=== PATIENT | male | born 1970 | race Caucasian/White ===

== ENCOUNTER 2016-09-11 19:32 | Emergency (ER) | payer OTHER ==
[~2016-09-11] VITALS: Wt 104.3 kg
[~2016-09-11 19:32] MED LIST: BACTRIM DS 8001 TA1 PO; CEFTIN125 MG PO; CEFUROXIME AXE250 MG PO; CIPROFLOXACIN500 MG PO; COMBIVENT1 ARO IH; HYDROCODONE BIT1 T11 PO; KEFLEX500 MG PO; LEVAQUIN750 MG PO; LOMOTIL 0.025 M1 TA1 PO; MEDROL DOSEPAK4 MG PO; METFORMIN HCL500 MG PO; MOTRIN800 MG PO; NAPROSYN500 MG PO; NKHM; NOVAPLUS V0.09 MG/Ac IH; PREDNICOT20 MG PO; PREDNISONE5 MG/5 M1 PO; PRILOSEC20 MG PO; ROBITUSSIN AC 110 ML PO; SPIRIVA -- 3018 MCG INH; TRAMADOL HCL50 MG PO; Tessalon Perle100 MG PO; ULTRAM50 MG PO; VICODIN 5/500 505 MG PO; ZITHROMAX Z PA250 MG PO; ZITHROMAX250 MG PO; ZOFRAN4 MG PO
[2016-09-11] MEDS ORDERED: METFORMIN750 MG PO (19:42)
[2016-09-11] MEDS ORDERED: LISINOPRIL5 MG PO (19:43)
[2016-09-11] MEDS ORDERED: GLIPIZIDE10 M2 PO (19:43)
[2016-09-11 20:42] LABS: BASO # 0.1 10*3/uL (0.0-0.1); BASO % 1.1 % (0.0-1.0); EOS # 0.2 10*3/uL (0.0-0.4); EOS % 2.4 % (1.0-4.0); HEMATOCRIT 40.2 % (42.0-52.0); LYMPH # 3.3 10*3/uL (1.3-4.4); LYMPH % 40.6 % (27.0-41.0); MEAN CORPUSCULAR HGB 29.6 pg (27.0-31.0); MEAN CORPUSCULAR HGB CONC 34.8 g/dl (33.0-37.0); MEAN PLATELET VOLUME 9.5 fl (9.6-12.3); MONO # 0.6 10*3/uL (0.1-1.0); MONO % 7.2 % (3.0-9.0); NEUT # 3.9 10*3/uL (2.3-7.9); NEUT % 48.5 % (47.0-73.0); PLATELET COUNT AUTOMATED 251 10*3/uL (130-400); RED BLOOD COUNT 4.73 10*6/uL (4.50-5.90); RED CELL DISTRI WIDTH 12.4 % (0-14.5)
[2016-09-11 20:43] LABS: BILIRUBIN NEGATIVE (NEGATIVE); BLOOD NEGATIVE (NEGATIVE); CLARITY SL CLOUDY (CLEAR); COLOR YELLOW (YELLOW); GLUCOSE 3+ (NEGATIVE); KETONE NEGATIVE (NEGATIVE); LEUKO ESTERASE NEGATIVE (NEGATIVE); NITRITE NEGATIVE (NEGATIVE); PH 5.5 (5.0-9.0); PROTEIN NEGATIVE (NEGATIVE); UROBILINOGEN 0.2 E.U./dl (0.2-1.0)
[2016-09-11 20:51] LABS: BACTERIA TRACE; RBC 0-2 rbc/hpf (0-2); URINE REFLEX COMMENT NO (NO); WBC 0-2 wbc/hpf (0-5)
[2016-09-11 21:06] LABS: ALBUMIN 3.7 gm/dl (3.1-4.5); ALKALINE PHOSPHATASE 129 U/L (45-117); BILIRUBIN, TOTAL 0.3 mg/dl (0.2-1.0); BUN 14 mg/dl (7-24); C-REACTIVE PROTEIN 0.42 MG/DL (0-0.3); CARBON DIOXIDE 28 mmol/L (21-32); CHLORIDE 101 mmol/L (98-107); EST GLOM FILT AFRICAN AMERICAN > 60 ml/min; GLUCOSE 406 mg/dL (65-99); POTASSIUM 4.4 mmol/L (3.5-5.1); SGOT/AST 20 IU/L (3-35); SGPT/ALT 41 U/L (12-78); SODIUM 138 mmol/L (136-145)
[2016-09-11 21:07] LABS: TROPONIN I < 0.015 ng/ml (<0.045)
[2016-09-11] MEDS ORDERED: PRILOSEC20 M1 PO (22:52)
[2016-09-11] MEDS ORDERED: NEURONTIN100 MG PO (23:07)
== END 2016-09-11 23:34 | disposition home or self-care (01) ==
LOC: ED 19:32
PROVIDERS: Emergency Medicine Emergency Medical Services
DX: K21.9 Gastro-esophageal reflux disease without esophagitis (principal); E11.65 Type 2 diabetes mellitus with hyperglycemia; Z79.899 Other long term (current) drug therapy

== ENCOUNTER 2016-11-20 12:35 | Emergency (ER) | payer SELFPAY ==
[~2016-11-20] VITALS: Wt 104.3 kg
[~2016-11-20 12:35] MED LIST changes: +GLIPIZIDE10 M2 PO; +LISINOPRIL5 MG PO; +METFORMIN750 MG PO; +NEURONTIN100 MG PO; +PRILOSEC20 M1 PO
[2016-11-20] MEDS ORDERED: METFORMIN HYDR750 MG PO (12:41)
[2016-11-20] MEDS ORDERED: GLIPIZIDE5 MG PO (12:41)
[2016-11-20 13:00] LABS: BASO # 0.1 10*3/uL (0.0-0.1); BASO % 0.8 % (0.0-1.0); EOS # 0.2 10*3/uL (0.0-0.4); EOS % 2.3 % (1.0-4.0); HEMATOCRIT 46.9 % (42.0-52.0); HEMOGLOBIN 16.4 g/dl (14.0-18.0); LYMPH # 2.6 10*3/uL (1.3-4.4); LYMPH % 28.2 % (27.0-41.0); MEAN CELL VOLUME 85.6 fl (80.0-94.0); MEAN CORPUSCULAR HGB 29.9 pg (27.0-31.0); MEAN PLATELET VOLUME 9.8 fl (9.6-12.3); MONO # 0.7 10*3/uL (0.1-1.0); MONO % 7.2 % (3.0-9.0); NEUT # 5.6 10*3/uL (2.3-7.9); NEUT % 61.2 % (47.0-73.0); PLATELET COUNT AUTOMATED 270 10*3/uL (130-400); RED BLOOD COUNT 5.48 10*6/uL (4.50-5.90); WHITE BLOOD COUNT 9.2 10*3/uL (4.8-10.8)
[2016-11-20 13:15] LABS: ALBUMIN 3.8 gm/dl (3.1-4.5); ALKALINE PHOSPHATASE 149 U/L (45-117); BILIRUBIN, TOTAL 0.6 mg/dl (0.2-1.0); BUN 16 mg/dl (7-24); CARBON DIOXIDE 31 mmol/L (21-32); CHLORIDE 100 mmol/L (98-107); EST GLOM FILT AFRICAN AMERICAN > 60 ml/min; GLUCOSE 337 mg/dL (65-99); POTASSIUM 4.3 mmol/L (3.5-5.1); SGOT/AST 23 IU/L (3-35); SGPT/ALT 40 U/L (12-78); SODIUM 139 mmol/L (136-145); TOTAL PROTEIN 7.4 gm/dL (6.4-8.2)
[2016-11-20] MEDS ORDERED: LEVAQUIN750 M1 PO (15:02)
[2016-11-20] MEDS ORDERED: PREDNISONE50 MG PO (15:02)
== END 2016-11-20 14:58 | disposition home or self-care (01) ==
LOC: ED 12:35
PROVIDERS: Registered Nurse
DX: J20.9 Acute bronchitis, unspecified (principal); E11.65 Type 2 diabetes mellitus with hyperglycemia; Z79.899 Other long term (current) drug therapy

== ENCOUNTER 2017-01-26 13:52 | Emergency (ER) | payer MEDICAID ==
[~2017-01-26] VITALS: Wt 102.1 kg
[~2017-01-26 13:52] MED LIST changes: +GLIPIZIDE5 MG PO; +LEVAQUIN750 M1 PO; +METFORMIN HYDR750 MG PO; +PREDNISONE50 MG PO
[2017-01-26 14:18] LABS: BILIRUBIN NEGATIVE (NEGATIVE); BLOOD NEGATIVE (NEGATIVE); CLARITY CLEAR (CLEAR); COLOR YELLOW (YELLOW); GLUCOSE NEGATIVE (NEGATIVE); KETONE NEGATIVE (NEGATIVE); LEUKO ESTERASE NEGATIVE (NEGATIVE); NITRITE NEGATIVE (NEGATIVE); PROTEIN TRACE (NEGATIVE); UROBILINOGEN 0.2 E.U./dl (0.2-1.0)
[2017-01-26 14:32] LABS: BASO # 0.1 10*3/uL (0.0-0.1); BASO % 1.2 % (0.0-1.0); EOS # 0.2 10*3/uL (0.0-0.4); EOS % 2.5 % (1.0-4.0); HEMATOCRIT 46.3 % (42.0-52.0); HEMOGLOBIN 16.3 g/dl (14.0-18.0); LYMPH # 2.9 10*3/uL (1.3-4.4); LYMPH % 37.9 % (27.0-41.0); MEAN CELL VOLUME 85.9 fl (80.0-94.0); MEAN CORPUSCULAR HGB 30.2 pg (27.0-31.0); MEAN CORPUSCULAR HGB CONC 35.2 g/dl (33.0-37.0); MEAN PLATELET VOLUME 9.1 fl (9.6-12.3); MONO # 0.7 10*3/uL (0.1-1.0); MONO % 9.3 % (3.0-9.0); NEUT # 3.7 10*3/uL (2.3-7.9); PLATELET COUNT AUTOMATED 242 10*3/uL (130-400); RED BLOOD COUNT 5.39 10*6/uL (4.50-5.90); RED CELL DISTRI WIDTH 12.3 % (0-14.5); WHITE BLOOD COUNT 7.5 10*3/uL (4.8-10.8)
[2017-01-26 14:45] LABS: BACTERIA TRACE; MUCOUS TRACE; URINE REFLEX COMMENT NO (NO)
[2017-01-26 14:47] LABS: ALBUMIN 3.9 gm/dl (3.1-4.5); ALKALINE PHOSPHATASE 111 U/L (45-117); BILIRUBIN, TOTAL 0.4 mg/dl (0.2-1.0); BUN 11 mg/dl (7-24); CARBON DIOXIDE 27 mmol/L (21-32); CHLORIDE 102 mmol/L (98-107); EST GLOM FILT AFRICAN AMERICAN > 60 ml/min; GLUCOSE 182 mg/dL (65-99); POTASSIUM 4.1 mmol/L (3.5-5.1); SGOT/AST 30 IU/L (3-35); SGPT/ALT 40 U/L (12-78); SODIUM 137 mmol/L (136-145); TOTAL PROTEIN 7.9 gm/dL (6.4-8.2)
[2017-01-27] MEDS ORDERED: CYCLOBENZAPRINE5 M3 PO (13:36)
[2017-01-27] MEDS ORDERED: MEDROL DOSEPAK4 MG PO (13:36)
== END 2017-01-26 16:05 | disposition home or self-care (01) ==
LOC: ED 13:52
PROVIDERS: Physician Assistant
DX: B34.9 Viral infection, unspecified (principal); M54.2 Cervicalgia; R52 Pain, unspecified; Z79.899 Other long term (current) drug therapy

== ENCOUNTER 2017-01-27 11:07 | Emergency (ER) | payer MEDICAID ==
[~2017-01-27] VITALS: Ht 190.5 cm; Wt 102.1 kg
[2017-01-27 12:12] LABS: BILIRUBIN NEGATIVE (NEGATIVE); BLOOD NEGATIVE (NEGATIVE); CLARITY CLEAR (CLEAR); COLOR YELLOW (YELLOW); GLUCOSE NEGATIVE (NEGATIVE); KETONE NEGATIVE (NEGATIVE); LEUKO ESTERASE NEGATIVE (NEGATIVE); NITRITE NEGATIVE (NEGATIVE); PROTEIN TRACE (NEGATIVE)
[2017-01-27 12:22] LABS: EPITHELIAL CELLS 0-2; MUCOUS 1+; URINE REFLEX COMMENT NO (NO); WBC 0-2 wbc/hpf (0-5)
[2017-01-27] MEDS ORDERED: CYCLOBENZAPRINE5 M3 PO (13:36)
[2017-01-27] MEDS ORDERED: MEDROL DOSEPAK4 MG PO (13:36)
== END 2017-01-27 14:51 | disposition home or self-care (01) ==
LOC: ED 11:07
PROVIDERS: Nurse Practitioner Family
DX: M54.16 Radiculopathy, lumbar region (principal); Z79.899 Other long term (current) drug therapy; E11.9 Type 2 diabetes mellitus without complications

== ENCOUNTER → 2017-02-06 | Outpatient (CLI) | payer MEDICAID ==
[~2017-02-06] MED LIST changes: +CYCLOBENZAPRINE5 M3 PO
[2017-02-06 11:13] LABS: ALBUMIN 3.8 gm/dl (3.1-4.5); ALKALINE PHOSPHATASE 134 U/L (45-117); BILIRUBIN, TOTAL 0.5 mg/dl (0.2-1.0); BUN 17 mg/dl (7-24); CARBON DIOXIDE 30 mmol/L (21-32); CHLORIDE 100 mmol/L (98-107); EST GLOM FILT AFRICAN AMERICAN > 60 ml/min; GLUCOSE 269 mg/dL (65-99); POTASSIUM 4.4 mmol/L (3.5-5.1); SGOT/AST 13 IU/L (3-35); SGPT/ALT 36 U/L (12-78); SODIUM 139 mmol/L (136-145); TOTAL PROTEIN 7.7 gm/dL (6.4-8.2)
== END | disposition home or self-care (01) ==
LOC: LAB 10:30 → US 10:30
PROVIDERS: Nurse Practitioner Family
DX: K83.9 Disease of biliary tract, unspecified (principal)

== ENCOUNTER 2017-04-22 14:45 | Emergency (ER) | payer OTHER ==
[~2017-04-22] VITALS: Ht 190.5 cm; Wt 104.3 kg
[2017-04-22] MEDS ORDERED: BROMFED DM COU118 M2 PO (16:55)
[2017-04-22] MEDS ORDERED: VENTOLIN 02.5 MG/3 M INH (16:55)
[2017-04-22] MEDS ORDERED: AUGMENTIN 875875 MG PO (16:55)
[2017-04-22] MEDS ORDERED: PROAIR HFA8.5 GM INH (16:55)
== END 2017-04-22 16:51 | disposition home or self-care (01) ==
LOC: ED 14:45
DX: J40 Bronchitis, not specified as acute or chronic (principal); Z79.84 Long term (current) use of oral hypoglycemic drugs; Z79.899 Other long term (current) drug therapy

== ENCOUNTER 2017-05-04 19:09 | Inpatient (IN) | payer OTHER ==
[~2017-05-04] VITALS: Ht 190.5 cm; Wt 106.7 kg
[~2017-05-04 19:09] MED LIST changes: +AUGMENTIN 875875 MG PO; +BROMFED DM COU118 M2 PO; +PROAIR HFA8.5 GM INH; +VENTOLIN 02.5 MG/3 M INH
[2017-05-04 19:16] VITALS: BP 152/75
--- NOTE | 2017-05-04 21:13 | NUR ---
pt remains w/o acute distress noted awaiting all reports for additional plan of care.
[2017-05-04 21:42] LABS: BASO # 0.1 10*3/uL (0.0-0.1); BASO % 0.7 % (0.0-1.0); EOS # 0.1 10*3/uL (0.0-0.4); EOS % 0.8 % (1.0-4.0); HEMATOCRIT 41.2 % (42.0-52.0); HEMOGLOBIN 14.9 g/dl (14.0-18.0); LYMPH % 22.5 % (27.0-41.0); MEAN CELL VOLUME 86.4 fl (80.0-94.0); MEAN CORPUSCULAR HGB 31.2 pg (27.0-31.0); MEAN CORPUSCULAR HGB CONC 36.2 g/dl (33.0-37.0); MEAN PLATELET VOLUME 9.6 fl (9.6-12.3); MONO # 0.4 10*3/uL (0.1-1.0); MONO % 4.8 % (3.0-9.0); NEUT # 6.3 10*3/uL (2.3-7.9); NEUT % 70.9 % (47.0-73.0); PLATELET COUNT AUTOMATED 267 10*3/uL (130-400); RED BLOOD COUNT 4.77 10*6/uL (4.50-5.90); RED CELL DISTRI WIDTH 12.2 % (0-14.5); WHITE BLOOD COUNT 8.8 10*3/uL (4.8-10.8)
[2017-05-04 21:51] VITALS: BP 126/76
[2017-05-04 21:58] LABS: ALBUMIN 3.5 gm/dl (3.1-4.5); BUN 13 mg/dl (7-24); CHLORIDE 99 mmol/L (98-107); CREATININE 1.09 mg/dL (0.70-1.30); POTASSIUM 3.8 mmol/L (3.5-5.1); SGOT/AST 25 IU/L (3-35); SGPT/ALT 44 U/L (12-78); SODIUM 133 mmol/L (136-145); TOTAL PROTEIN 7.1 gm/dL (6.4-8.2)
[2017-05-04 22:00] LABS: ALKALINE PHOSPHATASE 116 U/L (45-117)
[2017-05-04 22:08] VITALS: BP 142/78
--- NOTE | 2017-05-04 22:08 | NUR ---
A 46 MALE, admitted to , under the services of DAVID Michele DO with a diagnosis of FAILURE OF OUTPT TX/PNEUMONIA. Chief complaint is BRONCHITIS. Patient arrived via ambulatory from ER. Monitor applied. Initial assessment completed. Vital signs taken and recorded. DAVID MICHELE DO notified of admission to the unit. Orders received. See assessment for past medical history, medications and allergies. Patient and/or family oriented to unit. [facility] visitation policy reviewed. Clothing/patient valuable form completed. MED REC REVIEWED AND UPDATED. GIANCARLO CHASE
--- NOTE | 2017-05-04 22:20 | NUR ---
zithromax iv to floor with pt.
--- NOTE | 2017-05-04 23:22 | NUR ---
DR. LOBO NOTIFIED OF PT MED REC UPDATED AND VERIFIED.
[2017-05-05] VITALS: BP 140/74
--- NOTE | 2017-05-05 00:19 | NUR ---
DR. LOBO NOTIFIED OF CRITICAL LACTIC ACID OF 4.1. N.O. RCVD FOR NS BOLUS OF 30ML PER KG THEN MAINTENANCE NS AT 100CC/HR.
--- NOTE | 2017-05-05 02:10 | NUR ---
CRITICAL LACTIC ACID OF 3.8 REPORTED VIA TELEPHONE TO DR. LOBO. N.O. [facility] [place] TO REDRAW LACTIC ACID AT 0530.
--- NOTE | 2017-05-05 05:56 | NUR ---
DR. LOBO NOTIFIED OF CRITICAL LACTIC ACID OF 2.8. NO N.O. RCVD AT THIS TIME.
[2017-05-05 06:19] LABS: BASO % 0.3 % (0.0-1.0); HEMATOCRIT 40.7 % (42.0-52.0); HEMOGLOBIN 14.3 g/dl (14.0-18.0); LYMPH # 1.4 10*3/uL (1.3-4.4); LYMPH % 18.9 % (27.0-41.0); MEAN CELL VOLUME 86.8 fl (80.0-94.0); MEAN CORPUSCULAR HGB 30.5 pg (27.0-31.0); MEAN CORPUSCULAR HGB CONC 35.1 g/dl (33.0-37.0); MEAN PLATELET VOLUME 9.8 fl (9.6-12.3); MONO # 0.1 10*3/uL (0.1-1.0); MONO % 0.7 % (3.0-9.0); NEUT # 5.8 10*3/uL (2.3-7.9); NEUT % 79.7 % (47.0-73.0); PLATELET COUNT AUTOMATED 267 10*3/uL (130-400); RED BLOOD COUNT 4.69 10*6/uL (4.50-5.90); RED CELL DISTRI WIDTH 12.1 % (0-14.5); WHITE BLOOD COUNT 7.3 10*3/uL (4.8-10.8)
[2017-05-05 06:24] LABS: ACT PARTIAL THROMBO TIME 23.8 SECONDS (20.8-31.5); BUN 15 mg/dl (7-24); CHLORIDE 102 mmol/L (98-107); CHOLESTEROL 150 mg/dL (<200); CREATININE 1.07 mg/dL (0.70-1.30); HDL CHOLESTEROL 31 mg/dl (40-60); LDL CHOLESTEROL 101 mg/dL (9-159); POTASSIUM 4.4 mmol/L (3.5-5.1); SODIUM 135 mmol/L (136-145); TRIGLYCERIDES 91 mg/dl (<150); VLDL CHOLESTEROL 18 mg/dL (6-40)
[2017-05-05 06:32] LABS: THYROID STIM HORMONE (HS) 0.585 uIU/ml (0.358-4.75)
[2017-05-05 07:28] LABS: VITAMIN D, 25-HYDROXY 31.2 ng/mL (30-100)
[2017-05-05 08:00] VITALS: BP 136/72
--- NOTE | 2017-05-05 08:16 | NUR ---
NOTIFIED OF PATIENTS LACTIC ACID LEVEL.
--- NOTE | 2017-05-05 08:30 | NUR ---
Motion Picture Projectionist in to talk to patient. Patient states lives at HOME with HIS SISTER. There are 15 steps in the home. Physician: JEAN-PAUL KONG Pharmacy: [facility] services: NONE Patient's level of ADLs: INDEPENDENT Patient has working utilities: YES DME: NONE Follow-up physician's appointment after d/c: WILL BE MADE PRIOR TO DC Does patient want to access PORTAL?: Discharge plan HOME. AVI ESCOBAR
--- NOTE | 2017-05-05 10:06 | NUR ---
TYLENOL GIVEN PER PATIENT REQUEST FOR C/O CHEST PAIN DUE TO COUGHING. WILL MONITOR
--- NOTE | 2017-05-05 10:11 | NUR ---
PER PATIENT REQUEST A TYLENOL WAS GIVEN FOR C/O CHEST AND BACK PAIN DUE TO COUGHING WAS GIVEN FOR PAIN RATED 8/10. WILL MONITOR.
--- NOTE | 2017-05-05 10:23 | NUR ---
DR. LOBO NOTIFIED OF PATIENTS LACTIC ACID LEVEL AND OF MED REC VERIFIED THROUGH PATIENTS HOME PHARMACY.
--- NOTE | 2017-05-05 11:00 | NUR ---
TYLENOL EFFECCTIVE. PATIENT SATISFIED CHEST PAIN HAS RESOLVED.
[2017-05-05 12:00] VITALS: BP 132/76
[2017-05-05 16:00] VITALS: BP 116/63
[2017-05-05 20:00] VITALS: BP 112/46
--- NOTE | 2017-05-05 20:30 | NUR ---
PT STATES THAT PRN TYLENOL WAS EFFECTIVE FOR CHEST DISCOMFORT.
[2017-05-06] VITALS (7 sets, daily range): BP systolic 118–137; BP diastolic 63–88
--- NOTE | 2017-05-06 00:27 | NUR ---
DR. PARIKH OK'D FOR PT TO REMOVE HEART MONITOR TO SHOWER. PT ADVISED. PT WILL SHOWER IN AM.
--- NOTE | 2017-05-06 02:38 | NUR ---
24 HR chart check completed.
[2017-05-06 06:43] LABS: BASO % 0.1 % (0.0-1.0); HEMATOCRIT 38.9 % (42.0-52.0); HEMOGLOBIN 13.8 g/dl (14.0-18.0); LYMPH # 1.7 10*3/uL (1.3-4.4); LYMPH % 11.1 % (27.0-41.0); MEAN CELL VOLUME 87.2 fl (80.0-94.0); MEAN CORPUSCULAR HGB 30.9 pg (27.0-31.0); MEAN CORPUSCULAR HGB CONC 35.5 g/dl (33.0-37.0); MEAN PLATELET VOLUME 9.8 fl (9.6-12.3); MONO # 0.6 10*3/uL (0.1-1.0); NEUT # 13.1 10*3/uL (2.3-7.9); NEUT % 84.1 % (47.0-73.0); PLATELET COUNT AUTOMATED 286 10*3/uL (130-400); RED BLOOD COUNT 4.46 10*6/uL (4.50-5.90); RED CELL DISTRI WIDTH 12.1 % (0-14.5); WHITE BLOOD COUNT 15.6 10*3/uL (4.8-10.8)
[2017-05-06 07:07] LABS: BUN 14 mg/dl (7-24); CHLORIDE 102 mmol/L (98-107); CREATININE 0.87 mg/dL (0.70-1.30); POTASSIUM 4.1 mmol/L (3.5-5.1); SODIUM 136 mmol/L (136-145)
--- NOTE | 2017-05-06 07:45 | NUR ---
ASSESSMENT COMPLETED AND NOTED. SITTING UP IN BED EATING BREAKFAST ON ROOM AIR. NO COMPLAINTS OF SOB. LUNG SOUNDS CLEAR BILATERALLY. ELLIOT BUSTAMANTENJDMARGARITA
--- NOTE | 2017-05-06 08:23 | NUR ---
Shift chart check completed.
--- NOTE | 2017-05-06 09:29 | NUR ---
PT COMPLAINS OF HEADACHE, TYLENOL GIVEN. SEE MAR. WILL MONITOR FOR EFFECTIVENESS
--- NOTE | 2017-05-06 10:21 | NUR ---
TYLENOL EFFECTIVE FOR PAIN. NO NEEDS AT THIS TIME
--- NOTE | 2017-05-06 10:27 | NUR ---
PATIENT RESTING IN BED. WAITING FOR FAIMLY TO BRING CLOTHES TO SHOWER ELLIOT COLE SPNJDRC
--- NOTE | 2017-05-06 10:44 | NUR ---
ASSESSMENT COMPLETE. PT STATES NO NEEDS AT THIS TIME. PT STATES SOME SOB WITH EXERTION. WHEEZING NOTED. IV IN LEFT HAND INTACT, IVF INFUSING NS AT 100. WILL CONTINUE TO MONITOR FOR NEEDS. PT HAS STUDENT NURSE WELL TODAY.
--- NOTE | 2017-05-06 11:56 | NUR ---
BLOOD SUGAR 334
--- NOTE | 2017-05-06 12:18 | NUR ---
PATIENT SHOWERED AND PERFORMED ORAL HYGEINE. HE IS SITTING UP IN BED EATING LUNCH ELLIOT PINAAngela
--- NOTE | 2017-05-06 20:34 | NUR ---
PT STARTED NEW IV. STARTED BY CHAMP.
--- NOTE | 2017-05-06 20:56 | NUR ---
tylelon given for pain. will coninue to monitor.
--- NOTE | 2017-05-06 22:00 | NUR ---
NEW IV STARTED. FIRST 3 STICKS UNSECCESSFUL. 3RD STICK INFILTRATED AND CAUSED PAIN. PT GIVEN ICE AND TYLENOL TO HELP SOOTH PAIN. WILL CONINUE TO MONITOR.
--- NOTE | 2017-05-06 22:00 | NUR ---
SPOKE TO RESPIROTORY ON PHONE ON [facility] ON THE EMAR. RESP SAID THEY WILL TAKE CARE OF IT. WILL CONINUE TO MONITOR
[2017-05-07] VITALS: BP 129/72
--- NOTE | 2017-05-07 01:45 | NUR ---
PT GIVEN NORCO FOR PAIN. WILL CONTINUE TO MONITOR
--- NOTE | 2017-05-07 02:11 | NUR ---
NORCO UNEFFECTIVE AT THIS TIME. PT STATES PAIN IN ARM IS STILL AT AROUND 9/10. WILL CONTINUE TO MONITOR
[2017-05-07 04:00] VITALS: BP 120/70
--- NOTE | 2017-05-07 04:22 | NUR ---
PT GIVEN TYLENOL FOR PAIN. WILL CONTINUE TO MONITOR.
[2017-05-07 07:44] VITALS: BP 138/74
--- NOTE | 2017-05-07 08:09 | NUR ---
PATIENT LEFT FLOOR FOR XRAY. HE IS SITTING UP IN BED EATING BREAKFAST. ELLIOT COLE SPNJDRC
--- NOTE | 2017-05-07 08:15 | NUR ---
ASSESSMENT COMPLETED AND NOTED. PATIENT SITTING UP IN BED EATING BREAKFAST.
--- NOTE | 2017-05-07 09:10 | NUR ---
NORCO GIVEN FOR C/O HEADACHE. WILL MONITOR.
--- NOTE | 2017-05-07 09:56 | NUR ---
PT IS RESTING IN BED. NO COMPLAINTS ELLIOT AGUILARJDMARGARITA
[2017-05-07] MEDS ORDERED: KEFLEX750 M1 PO (12:09)
[2017-05-07 12:12] VITALS: BP 132/73
[2017-05-07] MEDS ORDERED: CHERATUSSIN AC118 M1 PO (12:12)
--- NOTE | 2017-05-07 12:14 | NUR ---
PT SITTING UP IN BED EATING LUNCH. CALL LIGHT IN REACH ELLIOT COLE SPNJDRCAngela
[2017-05-07] MEDS ORDERED: ZITHROMAX500 MG PO (12:17)
[2017-05-07] MEDS ORDERED: PREDNISONE10 MG PO (12:21)
--- NOTE | 2017-05-07 12:45 | NUR ---
IV SITE D/C, SITE ASYMPTOMATIC, CATHETER INTACT, PT TOLERATED WELL, SHOWERING PRIOR TO DISCHARGE ELLIOT [facility]JDDE[facility]
--- NOTE | 2017-05-07 14:19 | NUR ---
CCDIS Discharge instructions reviewed with patient/family. Patient receptive and verbalizes understanding. Follow-up care arranged. Written instructions given to patient/family. JASON HAWKINS
== END 2017-05-07 14:19 | disposition home or self-care (01) | DRG 194 ==
LOC: ED 19:09 → EDHOLD 21:25 → 4E 21:25
PROVIDERS: Hospitalist; Internal Medicine; Nurse Practitioner Family; ADMIT Internal Medicine
DX: J18.9 Pneumonia, unspecified organism (principal); E87.2 Acidosis; E11.65 Type 2 diabetes mellitus with hyperglycemia; E87.1 Hypo-osmolality and hyponatremia; K21.9 Gastro-esophageal reflux disease without esophagitis; I10 Essential (primary) hypertension; T38.0X5A Adverse effect of glucocorticoids and synthetic analogues, initial encounter; Z79.84 Long term (current) use of oral hypoglycemic drugs; Z79.2 Long term (current) use of antibiotics; Z82.49 Family history of ischemic heart disease and other diseases of the circulatory system; Z79.899 Other long term (current) drug therapy; Z78.9 Other specified health status; Y92.89 Other specified places as the place of occurrence of the external cause; Z83.3 Family history of diabetes mellitus

== ENCOUNTER → 2017-05-22 | Outpatient (CLI) | payer OTHER ==
[~2017-05-22] MED LIST changes: +CHERATUSSIN AC118 M1 PO; +KEFLEX750 M1 PO; +PREDNISONE10 MG PO; +ZITHROMAX500 MG PO
== END | disposition home or self-care (01) ==
LOC: LAB 15:26
DX: J18.9 Pneumonia, unspecified organism (principal)

== ENCOUNTER 2017-05-27 14:25 | Inpatient (IN) | payer OTHER ==
[~2017-05-27] VITALS: Ht 190.5 cm; Wt 107.3 kg
--- NOTE | ~2017-05-27 | PR ---
[place], [place] PROGRESS NOTE NAME: FESTUS BROWN UNIT #: [id number] ROOM: 420 DOCTOR: BRANDAN RIVERS MD BIRTHDATE: [birth year] DOS: 05/29/2017 SUBJECTIVE: He has been noted comfortable. At this time, still noted significant cough. The patient has been planned for bronchoscopy done today. He is n.p.o. past midnight. He has been getting bronchodilators, corticosteroids, antibiotics and other treatments as previously ordered. OBJECTIVE: VITAL SIGNS: Showed normal temperature, respiratory rate 22, heart rate of 95, blood pressure 140/76. Pulse oxygen saturation of the patient recorded as normal on room air 96% saturation. HEENT: Chronic moderate obesity. NECK: Supple. CARDIOVASCULAR SYSTEM: S1, S2 audible. LUNGS: The patient was noted without any wheezing or crackles at the present time. Breaths are noted mildly decreased bilaterally. ABDOMEN: Soft, obese, nontender. EXTREMITIES: No edema. LABORATORY DATA: Blood glucose 279, normal BUN and creatinine. CBC this morning, WBC count 16.6, hemoglobin 13.4, hematocrit 38.6, platelet count 275,000, 81% segmented neutrophils. The blood culture from the 5th of this month showed no bacterial growths. IMPRESSION: 1. The patient with ongoing acute exacerbation of bronchial asthma with the coughing. 2. Suspected mucus impaction of major airways, persistent cough. The other symptoms have been resolving gradually. 3. The patient with type 2 diabetes mellitus and uncontrolled hyperglycemia, we used other corticosteroids. Partial improvement noted ____ from yesterday. PLAN OF MANAGEMENT: Continuation of current medical management, bronchodilators, oxygen supplementation and the antibiotics and other therapies. Proceed with the bronchoscopy. Any changes in the management the patient needs to be made, would be ordered after the bronchoscopy. [place], [place] PROGRESS NOTE NAME: FESTUS BROWN UNIT #: [id number] ROOM: 420 DOCTOR: BRANDAN RIVERS MD BIRTHDATE: [birth year] BRANDAN LOPEZ MD CM:PNTRANS [id number] BRANDAN GREEN MD 05/29/17 1701 interface
--- NOTE | ~2017-05-27 | CON ---
[place], [place] REPORT OF CONSULTATION [id number] UNIT #: [id number] ROOM: 420 DOCTOR: JOHN GREEN MD,BRANDAN BIRTHDATE: [birth year] DOS: 05/28/2017 The consultation was requested by the hospitalist services for the assessment of the current ongoing respiratory symptoms of bronchial asthma and others. HISTORY OF PRESENT ILLNESS: This is a 46-year-old male, who has described presumed history of past exposure to the chemical inhalation of hydrochloric acid for the patient in 2010 resulting in some lung injury. The patient stated that he has developed coughing, which has been present for about 2 months that has been noted nonproductive and gradually worsening. The cough has been noted with nighttime awakening as well. He has been reporting symptoms of intermittent wheezing with the chest tightness and dyspnea with exertion. He has taken some outpatient medication stating that the symptoms had now been resolving with that. He denies any symptoms of chest pain. The patient has been admitted in this hospital in 04/2017, for the patient for a couple of days from 05/04/2017, until 05/07/2017, and manage was described as a finding of pneumonia, bronchitis, and other illnesses. The patient stated since he has been discharged from the hospital, he has not had any improvement in symptoms. The symptoms actually remains persistent. The patient denies any symptoms of rather hemoptysis. He has been followed by a bow stapler for the bronchitis, pneumonia, and other respiratory issues. REVIEW OF SYSTEMS: CONSTITUTIONAL SYMPTOMS: Fatigue and tiredness noted with the patient without any symptoms of fever or chills. EYES: The patient denies any symptoms of dryness of the eyes, burning, discharge, or redness. EARS, NOSE, AND THROAT: Denies sore throat, hoarseness, otalgia, postnasal drainage. CARDIOVASCULAR: Denies anginal pain, edema or pain of the lower extremities. GASTROINTESTINAL: Dysphagia, nausea, vomiting, diarrhea, abdominal pain, hematemesis, melena, or hematochezia. GENITOURINARY: No dysuria, suprapubic pain, hematuria. MUSCULOSKELETAL: No acute joint pain, redness, or tenderness. SKIN: Denies lesions or rashes. MUSCULOSKELETAL: Denies any acute joint pain, redness, or tenderness. SKIN: Denies lesions or rashes. CENTRAL NERVOUS SYSTEM: Dizziness, headache, diplopia, syncopal episode, seizures. Remaining systems were reviewed with the patient, they were noted all negative. PAST MEDICAL HISTORY: 1. 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 2. History of essential hypertension. 3. Type 2 diabetes mellitus. 4. Moderate obesity. 5. History of chronic right bundle branch block. [place], [place] REPORT OF CONSULTATION NAME: FESTUS BROWN UNIT #: [id number] ROOM: [facility] [place] DO[facility] [birth year] PAST SURGICAL HISTORY: 1. Fiberoptic bronchoscopy in the past. 2. Laryngoscopy. 3. Tonsillectomy. SOCIAL HISTORY: The patient stating that he is , has 2 children. Denies any history of alcohol use or any illicit drug use. He was noted nonsmoker lifetime. FAMILY HISTORY: The patient was noted for coronary artery disease and essential hypertension. HOME MEDICATIONS: 1. Reported use of Ventolin HFA inhaler p.r.n. use. 2. Glipizide 5 mg t.i.d. 3. Metformin 750 mg daily. 4. Albuterol sulfate 2.5 mg nebulizer 2-3 times a day p.r.n. for respiratory symptoms. DRUG ALLERGIES: No known drug allergies. PHYSICAL EXAMINATION: GENERAL: This is a 46-year-old male, who has been currently sitting on the bed for the patient without any acute distress at the time of the assessment. Height was noted as 6 feet 3 inches, weight of 236 pounds, BMI 29.5. VITAL SIGNS: Normal temperature since admission for this patient in the last 24-hour respiratory rate between 18-20, heart rate of 187, blood pressure 131/74-140/71. The pulse oxygen saturation on room air 92% saturation to 97% range was noted. HEENT: Head was atraumatic. Eyes nonicterus. NECK: Supple. CARDIOVASCULAR: S1, S2 audible without any added sounds. LUNGS: Moderate decreased breath sounds, occasional wheezing, no crackles. ABDOMEN: Soft, nontender with mild obesity. EXTREMITIES: Without any edema, clubbing, cyanosis. CENTRAL NERVOUS SYSTEM: Cranial nerves on 2-12 intact. No focal deficit. MUSCULOSKELETAL: No deformities. SKIN: No lesions or rashes. LABORATORY DATA: Lactic acid on admission 2.4, follow up 1.4 on 05/27. The PT, PTT 05/27, were normal. CMP of the patient 05/27, on admission, glucose 215. Sodium 134. Remaining BMP was normal with normal BUN and creatinine. Troponin for the patient 3 sets on the 5th and the 6th were all noted normal. CBC on 05/27, for this patient was noted completely normal. CBC that was done on 05/28, WBC count 12.7, hemoglobin 13.5, hematocrit 38.1, platelet count was normal. CMP of the patient of this morning, glucose 384 with normal BUN and creatinine, sodium 134. Chest x-ray of the patient, review for the patient of 05/22/2017, for this patient that was done for this patient previously from the PACS images were noted essentially no acute infiltrate ____ 2-view was also noted as a normal study. [place], [place] REPORT OF CONSULTATION NAME: KEVINFESTUS UNIT #: [id number] ROOM: 420 DOCTOR: PETE RIVERS MDM BIRTHDATE: [birth year] IMPRESSION: 1. The patient who has been noted with current diagnosis presumed acute exacerbation of bronchial asthma with acute bronchitis suspect a mucus impaction in the airway with a nonproductive cough. History of exposure and inhalation of the hydrochloric acid fumes for this patient in 2011 was reported by the patient. 2. History of diabetes mellitus, which has been noted currently uncontrolled hyperglycemia because of use of the corticosteroids. 3. History of mild obesity as well. PLAN OF MANAGEMENT: The dose of Solu-Medrol will be decreased to a lower dose 40 mg b.i.d. for this patient that will help in improvement in the hyperglycemia as well. Therapeutic bronchoscopy was discussed with the patient to be done tomorrow morning with the explaining of risks and the benefits and the patient is agreeable for the procedure. The n.p.o. past midnight for the patient will be achieved from midnight tonight. Empirically continue antibiotic and the antibiotic to be discontinued based on the culture results for the patient accordingly. Continuation of bronchodilator management. The patient had previously reported symptomatic management of cough as well. Other supportive therapy, plan of management and care. Usual treatment, all other supportive plan of management. Thanks for allowing me to participate in the care of this patient. BRANDAN LOPEZ MD CM:CONSTR:REPORT OF CONSULTATION 1230 05/28/17 1455 interface
--- NOTE | ~2017-05-27 | EKG ---
[place], [place] ELECTROCARDIOGRAM REPORT NAME: FESTUS BROWN UNIT #: [id number] ROOM: 420 DOCTOR: JOHN GREEN MD,BRANDAN BIRTHDATE: [birth year] DOS: 05/29/2017 ELECTROCARDIOGRAM The electrocardiogram done on 05/27/2017 at 3:17 p.m. Sinus rhythm was noted with right bundle branch block. No other abnormalities noted. BRANDAN LOPEZ MD CM:EKGRPT:ELECTROCARDIOGRAM REPORT [id number] [id number] BRANDAN GREEN MD
--- NOTE | ~2017-05-27 | EKG ---
[place], [place] ELECTROCARDIOGRAM REPORT NAME: FESTUS BROWN UNIT #: [id number] ROOM: 420 DOCTOR: JOHN GREEN MD,BRANDAN BIRTHDATE: [birth year] DOS: 05/29/2017 ELECTROCARDIOGRAM The electrocardiogram shows evidence of sinus tachycardia with heart rate of 115 beats per minute. Right bundle-branch block was noted, which is a chronic finding. BRANDAN LOPEZ MD CM:EKGRPT:ELECTROCARDIOGRAM REPORT [id number] BRANDAN GREEN MD
--- NOTE | ~2017-05-27 | PR ---
[place], [place] PROGRESS NOTE NAME: FESTUS BROWN [facility] #: [id number] UNIT #: [id number] ROOM: 420 DOCTOR: JOHN GREEN MD,BRANDAN BIRTHDATE: [birth year] DOS: 05/30/2017 PULMONARY FOLLOWUP SUBJECTIVE: He has a bronchoscopy done yesterday with significant reduction and improvement in the symptoms of cough was noted and with symptoms of chest pain and symptoms of abdominal pain. He has been noted comfortably resting on his bed. OBJECTIVE: VITAL SIGNS: Normal temperature, respiratory rate 18, heart rate 88, blood pressure of 108/57. Pulse oxygen saturation on room air is 96% saturation. HEENT: Examination shows no acute change. NECK: Supple. CARDIOVASCULAR: S1, S2 audible. LUNGS: Moderate decreased breath sounds noted in the lungs bilaterally. ABDOMEN: Soft, nontender and obese. EXTREMITIES: Without any edema. LABORATORY DATA: Culture preliminary of the bronchial washing showed normal mauricio, final culture results were pending. IMPRESSION: 1. Significant improvement noted with bronchoscopy after removal of mucus impaction of the major airways. 2. Resolving acute exacerbation of asthmatic bronchitis. 3. Chronic obesity. PLAN OF TREATMENT: From the pulmonary standpoint, the patient could be considered for home discharge. All other supportive therapy, plan of management continue as previously. Usual care. BRANDAN LOPEZ MD CM:PNTRANS [id number] BRANDAN GREEN MD 05/30/17 1406 interface
--- NOTE | ~2017-05-27 | PROC NOTE ---
[place], [place] PROCEDURE NOTE NAME: FESTUS BROWN UNIT #: [id number] ROOM: 420 DOCTOR: JOHN GREEN MD,BRANDAN BIRTHDATE: [birth year] DOS: 05/29/2017 BRONCHOSCOPY NOTE PREOPERATIVE DIAGNOSIS: Severe nonresolving cough with suspected mucus impaction of the major airways. POSTOPERATIVE DIAGNOSES: Severe nonresolving cough with suspected mucus impaction of the major airways. FINDINGS: Acute tracheobronchitis as well. No obstructive lesions. PROCEDURE DESCRIPTION: Informed consent obtained for the patient. He was brought to the OR and placed in supine position. Conscious sedation was administered by the Anesthesia Department. After achieving appropriate sedation in supine position. With airway in place, the video fiber bronchoscope advanced to the airway into laryngeal area. Epiglottis and vocal cords were seen. The vocal noted yellowish in color, moving symmetrically with movements. Bronchoscope advanced to vocal and tracheal lumen was noted with moderate amount of thick mucus secretion with minimal purulent secretions. All secretions suctioned out to the fany level. Fany noted sharp. Right upper, right middle, right lower, left upper, lingular lower lobe bronchi were all examined. Moderate plugs of the mucus was present in the bronchial tree bilaterally, multiple subsegments involved. All the secretions suctioned out. The plugs and mucus were cleared up. FINDINGS: Acute tracheobronchitis was also noted. The procedure was tolerated without any complications. Postoperative finding will be discussed with the patient later, once the patient recovers the effects of acute sedation. BRANDAN LOPEZ MD CM:PROCNOTE:PROCEDURE NOTE [id number] BRANDAN GREEN MD
[2017-05-27 14:35] VITALS: BP 154/78
[2017-05-27 14:49] VITALS: BP 131/81
[2017-05-27 15:20] LABS: BASO # 0.1 10*3/uL (0.0-0.1); EOS # 0.2 10*3/uL (0.0-0.4); EOS % 2.9 % (1.0-4.0); HEMATOCRIT 41.9 % (42.0-52.0); LYMPH # 2.8 10*3/uL (1.3-4.4); LYMPH % 41.3 % (27.0-41.0); MEAN CELL VOLUME 85.2 fl (80.0-94.0); MEAN CORPUSCULAR HGB 30.5 pg (27.0-31.0); MEAN CORPUSCULAR HGB CONC 35.8 g/dl (33.0-37.0); MEAN PLATELET VOLUME 9.5 fl (9.6-12.3); MONO # 0.4 10*3/uL (0.1-1.0); MONO % 6.1 % (3.0-9.0); NEUT # 3.3 10*3/uL (2.3-7.9); NEUT % 48.6 % (47.0-73.0); PLATELET COUNT AUTOMATED 253 10*3/uL (130-400); RED BLOOD COUNT 4.92 10*6/uL (4.50-5.90); RED CELL DISTRI WIDTH 11.9 % (0-14.5); WHITE BLOOD COUNT 6.8 10*3/uL (4.8-10.8)
[2017-05-27 15:28] LABS: ACT PARTIAL THROMBO TIME 25.1 SECONDS (20.8-31.5)
[2017-05-27 15:38] LABS: ALBUMIN 3.5 gm/dl (3.1-4.5); ALKALINE PHOSPHATASE 130 U/L (45-117); BUN 16 mg/dl (7-24); CHLORIDE 101 mmol/L (98-107); CREATININE 0.97 mg/dL (0.70-1.30); LIPASE 134 U/L (73-393); POTASSIUM 3.6 mmol/L (3.5-5.1); SGOT/AST 15 IU/L (3-35); SGPT/ALT 33 U/L (12-78); SODIUM 134 mmol/L (136-145); TOTAL PROTEIN 7.2 gm/dL (6.4-8.2)
[2017-05-27 15:39] LABS: TROPONIN I < 0.015 ng/ml (<0.045)
--- NOTE | 2017-05-27 15:45 | NUR ---
REPORT RECEIVED FROM NATE SHEPHERD AT THIS TIME. PT ALERT. RESPS EASY AND NONLABORED. VSS. PT DENIES ANY DISTRESS OR DISCOMFORT.
[2017-05-27 16:00] VITALS: BP 126/72
[2017-05-27 17:00] VITALS: BP 126/72
--- NOTE | 2017-05-27 18:41 | NUR ---
CALLED DR. LOPEZ AWARE OF CONSULT NO NEW ORDERS.
--- NOTE | 2017-05-27 18:49 | NUR ---
A 46, admitted to , under the services of LAVELLE Sky DO with a diagnosis of ASTHMATIC BRONCHITIS WITH ACUTE EXACERBATION. Chief complaint is SOB. Patient arrived via bed from ER. Monitor applied. Initial assessment completed. Vital signs taken and recorded. LAVELLE SKY DO notified of admission to the unit. Orders received. See assessment for past medical history, medications and allergies. Patient and/or family oriented to unit. [facility] visitation policy reviewed. Clothing/patient valuable form completed. RUDY DE JESUS
--- NOTE | 2017-05-27 19:45 | NUR ---
tylenol given per order for headache pain worse with cough rated "10" when coughing. see mar.
[2017-05-27 20:00] VITALS: BP 114/71
--- NOTE | 2017-05-27 20:45 | NUR ---
TYLENOL SOMEWHAT EFFECTIVE FOR HEADACHE RATED "8" WHEN COUGH.
--- NOTE | 2017-05-27 23:51 | NUR ---
TYLENOL GIVEN FOR HEADACHE PAIN RATED "10" WHEN COUGHING. SEE MAR.
[2017-05-28] VITALS: BP 131/74
--- NOTE | 2017-05-28 00:50 | NUR ---
TYLENOL SOMEWHAT EFFECTIVE FOR HEADACHE PER PT. DENIES NEED FOR ANY OTHER PAIN MEDICATION AT THIS TIME.
[2017-05-28 06:15] LABS: BASO % 0.2 % (0.0-1.0); HEMATOCRIT 38.1 % (42.0-52.0); HEMOGLOBIN 13.5 g/dl (14.0-18.0); LYMPH # 1.3 10*3/uL (1.3-4.4); LYMPH % 10.1 % (27.0-41.0); MEAN CELL VOLUME 85.8 fl (80.0-94.0); MEAN CORPUSCULAR HGB 30.4 pg (27.0-31.0); MEAN CORPUSCULAR HGB CONC 35.4 g/dl (33.0-37.0); MEAN PLATELET VOLUME 9.6 fl (9.6-12.3); MONO # 0.1 10*3/uL (0.1-1.0); MONO % 0.7 % (3.0-9.0); NEUT # 11.2 10*3/uL (2.3-7.9); NEUT % 88.3 % (47.0-73.0); PLATELET COUNT AUTOMATED 255 10*3/uL (130-400); RED BLOOD COUNT 4.44 10*6/uL (4.50-5.90); WHITE BLOOD COUNT 12.7 10*3/uL (4.8-10.8)
[2017-05-28 06:32] LABS: ALBUMIN 3.5 gm/dl (3.1-4.5); ALKALINE PHOSPHATASE 102 U/L (45-117); BUN 17 mg/dl (7-24); CHLORIDE 100 mmol/L (98-107); CREATININE 1.08 mg/dL (0.70-1.30); PHOSPHOROUS 3.9 mg/dL (2.5-4.9); POTASSIUM 4.3 mmol/L (3.5-5.1); SGOT/AST 14 IU/L (3-35); SGPT/ALT 34 U/L (12-78); SODIUM 134 mmol/L (136-145)
[2017-05-28 06:33] LABS: TOTAL PROTEIN 6.8 gm/dL (6.4-8.2)
[2017-05-28 08:00] VITALS: BP 136/77
--- NOTE | 2017-05-28 08:30 | NUR ---
Rug Renovator in to talk to patient. Patient states lives at HOME with HIS SISTER. There are 15 steps in the home. Physician: JEAN-PAUL KONG Pharmacy: [facility] services: NONE Patient's level of ADLs: INDEPENDENT Patient has working utilities: YES DME: NONE Follow-up physician's appointment after d/c: WILL BE MADE PRIOR TO DC Does patient want to access PORTAL?: Discharge plan HOME. AVI ESCOBAR
[2017-05-28 12:00] VITALS: BP 134/69
[2017-05-28 16:00] VITALS: BP 122/63
[2017-05-28 20:00] VITALS: BP 115/70
--- NOTE | 2017-05-28 21:48 | NUR ---
CRITICAL HIGH BLOOD SUGAR. REFLUX ORDERED.
--- NOTE | 2017-05-28 22:45 | NUR ---
CALLED DR. BAEZ AND NOTIFIED HIM OF CRITICAL HIGH GLUCOSE 452 AND OK TO GIVE THE SLIDING SCALE OF 14 UNITS.
--- NOTE | 2017-05-28 23:25 | NUR ---
NORCO GIVEN PER ORDER FOR HEADACHE PAIN RATED "9" MOSTLY WITH COUGHING. SEE MAR.
[2017-05-29] VITALS (10 sets, daily range): BP systolic 114–140; BP diastolic 56–78
--- NOTE | 2017-05-29 00:20 | NUR ---
NORCO EFFECTIVE FOR HEADACHE PAIN PER PT RATED PAIN"6"
[2017-05-29 06:37] LABS: BASO % 0.1 % (0.0-1.0); HEMATOCRIT 38.6 % (42.0-52.0); HEMOGLOBIN 13.4 g/dl (14.0-18.0); LYMPH # 1.8 10*3/uL (1.3-4.4); LYMPH % 10.9 % (27.0-41.0); MEAN CELL VOLUME 87.1 fl (80.0-94.0); MEAN CORPUSCULAR HGB 30.2 pg (27.0-31.0); MEAN CORPUSCULAR HGB CONC 34.7 g/dl (33.0-37.0); MEAN PLATELET VOLUME 9.5 fl (9.6-12.3); MONO # 1.2 10*3/uL (0.1-1.0); MONO % 7.2 % (3.0-9.0); NEUT # 13.5 10*3/uL (2.3-7.9); NEUT % 81.2 % (47.0-73.0); PLATELET COUNT AUTOMATED 275 10*3/uL (130-400); RED BLOOD COUNT 4.43 10*6/uL (4.50-5.90); RED CELL DISTRI WIDTH 12.2 % (0-14.5); WHITE BLOOD COUNT 16.6 10*3/uL (4.8-10.8)
[2017-05-29 07:08] LABS: BUN 16 mg/dl (7-24); CHLORIDE 102 mmol/L (98-107); CREATININE 0.89 mg/dL (0.70-1.30); POTASSIUM 4.1 mmol/L (3.5-5.1); SODIUM 137 mmol/L (136-145)
--- NOTE | 2017-05-29 07:30 | NUR ---
Pt taken off floor for bronchoscopy.
--- NOTE | 2017-05-29 13:16 | NUR ---
PT. INSTRUCTED ON FLUTTER AND THE PURPOSE OF EXERCISE. PT GIVEN Q1 HOUR USE AND TO TAKE HOME UPON DISCHARGE. GOOD EFFORT AND NO QUESTION AT THIS TIME.
[2017-05-30] VITALS: BP 132/78
[2017-05-30 03:47] VITALS: BP 128/72
--- NOTE | 2017-05-30 04:00 | NUR ---
SLEEPING. RESP EASY AND REG.
[2017-05-30 08:01] VITALS: BP 108/57
[2017-05-30] MEDS ORDERED: PREDNISONE10 MG PO (09:57)
[2017-05-30] MEDS ORDERED: LEVOFLOXACIN500 MG PO (09:57)
--- NOTE | 2017-05-30 11:34 | NUR ---
ORDER ENTERED FOR HOME O2 ASSESSMENT, THEN PATIENT TO BE DISCHARGED.
--- NOTE | 2017-05-30 11:55 | NUR ---
HOME O2 ASSESSMENT: PRE BP: 135/83, HR 82, RR 18, PULSE OX 94% ON ROOM AIR. AMBULATED PATIENT TWO COMPLETE LAPS IN HALLWAY, PULSE OX 91%-93% ON ROOM AIR THROUGHOUT AMBULATION. POST BP: 141/81, HR 82, RR 18, SAT 94%. APPEARED TO TOLERATE WELL.
--- NOTE | 2017-05-30 12:31 | NUR ---
Discharge instructions reviewed with patient/family. Patient receptive and verbalizes understanding. Follow-up care arranged. Written instructions given to patient/family. PATIENT DISCHARGED TO [facility], AMBULATORY, FOR TRANSPORT HOME BY PRIVATE VEHICLE. EVELINA REDMOND
[2017-05-30 13:09] LABS: ACID FAST SMEAR Negative (.); ACID FAST SPEC PROCESSING Concentration (.)
== END 2017-05-30 12:31 | disposition home or self-care (01) | DRG 871 ==
LOC: ED 14:25 → 4E 17:53
PROVIDERS: Internal Medicine Critical Care Medicine; Internal Medicine Nephrology; Nurse Practitioner Family; Student in an Organized Health Care Education/Training Program; ADMIT Student in an Organized Health Care Education/Training Program
PROC: 0BC28ZZ Extirpation of Matter from Carina, Via Natural or Artificial Opening Endoscopic (ICD-10-PCS; principal; 2017-05-29)
PROC: 0BC48ZZ Extirpation of Matter from Right Upper Lobe Bronchus, Via Natural or Artificial Opening Endoscopic (ICD-10-PCS; 2017-05-29)
PROC: 0BC88ZZ Extirpation of Matter from Left Upper Lobe Bronchus, Via Natural or Artificial Opening Endoscopic (ICD-10-PCS; 2017-05-29)
PROC: 0BC18ZZ Extirpation of Matter from Trachea, Via Natural or Artificial Opening Endoscopic (ICD-10-PCS; 2017-05-29)
PROC: 0BC58ZZ Extirpation of Matter from Right Middle Lobe Bronchus, Via Natural or Artificial Opening Endoscopic (ICD-10-PCS; 2017-05-29)
PROC: 0BC38ZZ Extirpation of Matter from Right Main Bronchus, Via Natural or Artificial Opening Endoscopic (ICD-10-PCS; 2017-05-29)
PROC: 0BC78ZZ Extirpation of Matter from Left Main Bronchus, Via Natural or Artificial Opening Endoscopic (ICD-10-PCS; 2017-05-29)
PROC: 0BC68ZZ Extirpation of Matter from Right Lower Lobe Bronchus, Via Natural or Artificial Opening Endoscopic (ICD-10-PCS; 2017-05-29)
PROC: 0BCB8ZZ Extirpation of Matter from Left Lower Lobe Bronchus, Via Natural or Artificial Opening Endoscopic (ICD-10-PCS; 2017-05-29)
PROC: 0BC98ZZ Extirpation of Matter from Lingula Bronchus, Via Natural or Artificial Opening Endoscopic (ICD-10-PCS; 2017-05-29)
DX: A41.9 Sepsis, unspecified organism (principal); J18.9 Pneumonia, unspecified organism; T17.590A Other foreign object in bronchus causing asphyxiation, initial encounter; E87.2 Acidosis; E11.65 Type 2 diabetes mellitus with hyperglycemia; J45.901 Unspecified asthma with (acute) exacerbation; E66.01 Morbid (severe) obesity due to excess calories; E87.1 Hypo-osmolality and hyponatremia; K21.9 Gastro-esophageal reflux disease without esophagitis; I45.10 Unspecified right bundle-branch block; T38.0X5A Adverse effect of glucocorticoids and synthetic analogues, initial encounter; I10 Essential (primary) hypertension; X58.XXXA Exposure to other specified factors, initial encounter; Y93.89 Activity, other specified; Y92.89 Other specified places as the place of occurrence of the external cause; Y99.8 Other external cause status; Z79.899 Other long term (current) drug therapy; Z79.2 Long term (current) use of antibiotics; Z79.84 Long term (current) use of oral hypoglycemic drugs; Z82.49 Family history of ischemic heart disease and other diseases of the circulatory system; Z83.3 Family history of diabetes mellitus; Z68.29 Body mass index [BMI] 29.0-29.9, adult

== ENCOUNTER 2017-06-12 15:44 | Emergency (ER) | payer OTHER ==
[~2017-06-12] VITALS: Wt 106.6 kg
[~2017-06-12 15:44] MED LIST changes: +LEVOFLOXACIN500 MG PO
[2017-06-12] MEDS ORDERED: LANTUS SOL100 UNIT/1 SQ (15:55)
[2017-06-12] MEDS ORDERED: OMEPRAZOLE D/R20 MG PO (15:56)
[2017-06-12 16:36] LABS: BASO # 0.1 10*3/uL (0.0-0.1); BASO % 1.2 % (0.0-1.0); EOS # 0.1 10*3/uL (0.0-0.4); EOS % 0.9 % (1.0-4.0); HEMATOCRIT 43.3 % (42.0-52.0); HEMOGLOBIN 15.3 g/dl (14.0-18.0); LYMPH # 3.2 10*3/uL (1.3-4.4); LYMPH % 36.5 % (27.0-41.0); MEAN CELL VOLUME 85.4 fl (80.0-94.0); MEAN CORPUSCULAR HGB 30.2 pg (27.0-31.0); MEAN CORPUSCULAR HGB CONC 35.3 g/dl (33.0-37.0); MEAN PLATELET VOLUME 9.8 fl (9.6-12.3); MONO # 0.6 10*3/uL (0.1-1.0); MONO % 6.5 % (3.0-9.0); NEUT # 4.7 10*3/uL (2.3-7.9); NEUT % 54.6 % (47.0-73.0); PLATELET COUNT AUTOMATED 218 10*3/uL (130-400); RED BLOOD COUNT 5.07 10*6/uL (4.50-5.90); RED CELL DISTRI WIDTH 12.1 % (0-14.5); WHITE BLOOD COUNT 8.7 10*3/uL (4.8-10.8)
[2017-06-12 16:58] LABS: ALBUMIN 3.9 gm/dl (3.1-4.5); BUN 17 mg/dl (7-24); CHLORIDE 101 mmol/L (98-107); CREATININE 0.94 mg/dL (0.70-1.30); POTASSIUM 4.1 mmol/L (3.5-5.1); SGOT/AST 16 IU/L (3-35); SGPT/ALT 41 U/L (12-78); SODIUM 135 mmol/L (136-145); TOTAL PROTEIN 7.7 gm/dL (6.4-8.2)
[2017-06-12 17:00] LABS: ALKALINE PHOSPHATASE 132 U/L (45-117)
== END 2017-06-12 18:30 | disposition home or self-care (01) ==
LOC: ED 15:44
PROVIDERS: Physician Assistant
DX: E11.65 Type 2 diabetes mellitus with hyperglycemia (principal); Z79.4 Long term (current) use of insulin; Z90.89 Acquired absence of other organs

== ENCOUNTER → 2017-08-07 | Outpatient (CLI) | payer OTHER ==
[~2017-08-07] MED LIST changes: +ANAPROX DS550 MG PO; +LANTUS SOL100 UNIT/1 SQ; +OMEPRAZOLE D/R20 MG PO
== END | disposition home or self-care (01) ==
LOC: RAD 13:16
DX: M16.11 Unilateral primary osteoarthritis, right hip (principal); M25.561 Pain in right knee

== ENCOUNTER 2017-08-09 15:41 | Emergency (ER) | payer OTHER ==
[~2017-08-09] VITALS: Ht 190.5 cm; Wt 108.0 kg
[~2017-08-09 15:41] MED LIST changes: -ANAPROX DS550 MG PO
[2017-08-09] MEDS ORDERED: ANAPROX DS550 MG PO (16:19)
== END 2017-08-09 16:21 | disposition home or self-care (01) ==
LOC: ED 15:41
DX: M16.11 Unilateral primary osteoarthritis, right hip (principal); Z79.899 Other long term (current) drug therapy

== ENCOUNTER 2017-09-17 05:34 | Inpatient (IN) | payer OTHER ==
[2017-09-17] VITALS (8 sets, daily range): BP systolic 110–149; BP diastolic 63–88
[~2017-09-17] VITALS: Ht 190.5 cm; Wt 110.5 kg
--- NOTE | ~2017-09-17 | PR ---
[place], [place] PROGRESS NOTE [id number] UNIT #: [id number] ROOM: 405 DOCTOR: MARIAH LUNA MD BIRTHDATE: [birth year] DOS: 09/18/2017 SUBJECTIVE: The patient was seen just prior to his stress test in the Cardiology laboratory. Since his admission, his chest symptoms have resolved completely. This was coincidental with our stopping losartan. The patient believes the losartan was responsible for his symptoms and there are reports of it causing chest discomfort in 3 to 5% of patients. His echocardiogram showed no wall motion abnormalities. Vital signs are stable. PHYSICAL EXAMINATION: VITAL SIGNS: Today his pulse is 68 and regular, blood pressure is 118/74. He is afebrile. NECK: Supple. He has no jugular distention. Carotids are full. There are no bruits. He has no neck or supraclavicular masses. LUNGS: Respirations are unlabored. His chest is clear to auscultation and percussion. He has no presacral edema or chest wall tenderness. HEART: Has a regular rhythm with a soft S4 gallop, but no S3 or murmur. The PMI is not displaced. He has no precordial heave, lift or thrill. ABDOMEN: Soft and normally active without masses, organomegaly or bruits. EXTREMITIES: Showed no edema. Peripheral pulses are palpable. LABORATORY DATA: Echocardiography showed normal left ventricular size, wall motion and systolic function with mild concentric left ventricular hypertrophy, but normal diastolic function. No valve abnormalities were present. IMPRESSION: 1. Atypical chest pain. 2. Type 2 diabetes mellitus. PLAN: We will proceed with an exercise myocardial perfusion stress test today. Further recommendations will depend upon the results of the stress test. However, if possible, I would like the patient to be placed back on lisinopril for long-term renal protection. I thank the hospitalist physicians for asking our advice regarding the patient's care. [place], [place] PROGRESS NOTE NAME: FESTUS BROWN UNIT #: [id number] ROOM: 405 DOCTOR: MARIAH LUNA MD BIRTHDATE: [birth year] MARIAH LUNA MD CM:PNTRANS 5 5 MAIRAH LUNA MD 09/18/17955 interface
[~2017-09-17 05:34] MED LIST changes: +ANAPROX DS550 MG PO
[2017-09-17 05:56] LABS: BASO # 0.1 10*3/uL (0.0-0.1); EOS # 0.3 10*3/uL (0.0-0.4); EOS % 3.1 % (1.0-4.0); HEMATOCRIT 42.6 % (42.0-52.0); HEMOGLOBIN 14.6 g/dl (14.0-18.0); LYMPH # 3.6 10*3/uL (1.3-4.4); LYMPH % 43.6 % (27.0-41.0); MEAN CORPUSCULAR HGB 30.2 pg (27.0-31.0); MEAN CORPUSCULAR HGB CONC 34.3 g/dl (33.0-37.0); MEAN PLATELET VOLUME 9.4 fl (9.6-12.3); MONO # 0.6 10*3/uL (0.1-1.0); MONO % 7.1 % (3.0-9.0); NEUT # 3.7 10*3/uL (2.3-7.9); NEUT % 45.1 % (47.0-73.0); PLATELET COUNT AUTOMATED 278 10*3/uL (130-400); RED BLOOD COUNT 4.84 10*6/uL (4.50-5.90); RED CELL DISTRI WIDTH 12.4 % (0-14.5); WHITE BLOOD COUNT 8.3 10*3/uL (4.8-10.8)
[2017-09-17 06:11] LABS: ALBUMIN 3.7 gm/dl (3.1-4.5); ALKALINE PHOSPHATASE 98 U/L (45-117); BUN 11 mg/dl (7-24); CHLORIDE 102 mmol/L (98-107); CREATININE 0.85 mg/dL (0.70-1.30); POTASSIUM 3.9 mmol/L (3.5-5.1); SGOT/AST 25 IU/L (3-35); SGPT/ALT 31 U/L (12-78); SODIUM 139 mmol/L (136-145)
[2017-09-17 06:12] LABS: TROPONIN I < 0.015 ng/ml (<0.045)
[2017-09-17 06:15] LABS: ACT PARTIAL THROMBO TIME 24.4 SECONDS (20.8-31.5)
[2017-09-17] MEDS ORDERED: HUMALOG100 UNIT/1 SQ (06:41)
[2017-09-17] MEDS ORDERED: BASAG SOL SC (06:42)
[2017-09-17] MEDS ORDERED: ARNUITY ELLIP200 MCG INH (06:43)
[2017-09-17] MEDS ORDERED: LOSARTAN POTASS25 M1 PO (06:43)
[2017-09-17 07:14] LABS: FREE T4 0.91 ng/dl (0.76-1.46); THYROID STIM HORMONE (HS) 2.96 uIU/ml (0.358-4.75)
[2017-09-17 07:41] LABS: VITAMIN D, 25-HYDROXY 19.5 ng/mL (30-100)
[2017-09-18] VITALS: BP 110/56
[2017-09-18 06:30] LABS: BASO # 0.1 10*3/uL (0.0-0.1); BASO % 1.5 % (0.0-1.0); EOS # 0.2 10*3/uL (0.0-0.4); EOS % 3.1 % (1.0-4.0); HEMATOCRIT 43.2 % (42.0-52.0); HEMOGLOBIN 14.7 g/dl (14.0-18.0); LYMPH # 2.9 10*3/uL (1.3-4.4); LYMPH % 39.6 % (27.0-41.0); MEAN CELL VOLUME 88.2 fl (80.0-94.0); MEAN PLATELET VOLUME 9.3 fl (9.6-12.3); MONO # 0.6 10*3/uL (0.1-1.0); MONO % 8.7 % (3.0-9.0); NEUT # 3.5 10*3/uL (2.3-7.9); NEUT % 46.8 % (47.0-73.0); PLATELET COUNT AUTOMATED 254 10*3/uL (130-400); RED CELL DISTRI WIDTH 12.4 % (0-14.5); WHITE BLOOD COUNT 7.4 10*3/uL (4.8-10.8)
[2017-09-18 06:55] LABS: ALBUMIN 3.5 gm/dl (3.1-4.5); ALKALINE PHOSPHATASE 98 U/L (45-117); BUN 13 mg/dl (7-24); CHLORIDE 99 mmol/L (98-107); CREATININE 0.85 mg/dL (0.70-1.30); PHOSPHOROUS 4.5 mg/dL (2.5-4.9); POTASSIUM 3.9 mmol/L (3.5-5.1); SGOT/AST 18 IU/L (3-35); SGPT/ALT 31 U/L (12-78); SODIUM 138 mmol/L (136-145); TOTAL PROTEIN 6.8 gm/dL (6.4-8.2)
[2017-09-18 08:00] VITALS: BP 118/74
[2017-09-18 12:00] VITALS: BP 122/67
[2017-09-18] MEDS ORDERED: ZESTRIL2.5 MG PO (12:05)
[2017-09-18] MEDS ORDERED: VITAMIN D31000 UNIT PO (12:05)
== END 2017-09-18 13:33 | disposition home or self-care (01) | DRG 313 ==
LOC: ED 05:34 → 4E 06:25 → EDHOLD 06:25 → 4E 06:32
PROVIDERS: Emergency Medicine Emergency Medical Services; Internal Medicine
PROC: 4A02XM4 Measurement of Cardiac Total Activity, External Approach (ICD-10-PCS; principal; 2017-09-18)
DX: R07.89 Other chest pain (principal); E11.65 Type 2 diabetes mellitus with hyperglycemia; K21.9 Gastro-esophageal reflux disease without esophagitis; R00.1 Bradycardia, unspecified; M16.11 Unilateral primary osteoarthritis, right hip; I10 Essential (primary) hypertension; T46.5X5A Adverse effect of other antihypertensive drugs, initial encounter; E55.9 Vitamin D deficiency, unspecified; E66.09 Other obesity due to excess calories; Z68.30 Body mass index [BMI] 30.0-30.9, adult; Y92.89 Other specified places as the place of occurrence of the external cause; Z79.4 Long term (current) use of insulin; Z82.49 Family history of ischemic heart disease and other diseases of the circulatory system; Z87.01 Personal history of pneumonia (recurrent); Z79.899 Other long term (current) drug therapy; Z83.3 Family history of diabetes mellitus

== ENCOUNTER 2017-09-20 12:42 | Emergency (ER) | payer OTHER ==
[~2017-09-20] VITALS: Ht 190.5 cm; Wt 108.9 kg
--- NOTE | ~2017-09-20 | EKG ---
[place], [place] ELECTROCARDIOGRAM REPORT NAME: FESTUS BROWN UNIT #: [id number] ROOM: DOCTOR: RONNA BANEGAS,ABBI BIRTHDATE: [birth year] DOS: 09/20/2017 TIME: 1300 hours IMPRESSION: 1. Sinus rhythm. 2. Right bundle branch block. 3. Baseline artifacts. 4. Normal QT interval. ABBI FRIEND MD CM:EKGRPT:ELECTROCARDIOGRAM REPORT [id number] ABBI FRIEND MD
[~2017-09-20 12:42] MED LIST changes: +ARNUITY ELLIP200 MCG INH; +BASAG SOL SC; +HUMALOG100 UNIT/1 SQ; +LOSARTAN POTASS25 M1 PO; +VITAMIN D31000 UNIT PO; +ZESTRIL2.5 MG PO
[2017-09-20 13:14] LABS: BASO # 0.1 10*3/uL (0.0-0.1); BASO % 0.8 % (0.0-1.0); EOS % 0.1 % (1.0-4.0); HEMATOCRIT 40.7 % (42.0-52.0); LYMPH # 1.3 10*3/uL (1.3-4.4); LYMPH % 17.1 % (27.0-41.0); MEAN CELL VOLUME 88.5 fl (80.0-94.0); MEAN CORPUSCULAR HGB 30.4 pg (27.0-31.0); MEAN CORPUSCULAR HGB CONC 34.4 g/dl (33.0-37.0); MEAN PLATELET VOLUME 9.4 fl (9.6-12.3); NEUT # 5.1 10*3/uL (2.3-7.9); NEUT % 68.7 % (47.0-73.0); PLATELET COUNT AUTOMATED 223 10*3/uL (130-400); RED CELL DISTRI WIDTH 12.4 % (0-14.5); WHITE BLOOD COUNT 7.4 10*3/uL (4.8-10.8)
[2017-09-20 13:23] LABS: ACT PARTIAL THROMBO TIME 23.9 SECONDS (20.8-31.5)
[2017-09-20 13:33] LABS: ALBUMIN 3.6 gm/dl (3.1-4.5); ALKALINE PHOSPHATASE 93 U/L (45-117); BUN 11 mg/dl (7-24); CHLORIDE 102 mmol/L (98-107); CREATININE 1.07 mg/dL (0.70-1.30); LIPASE 110 U/L (73-393); POTASSIUM 3.7 mmol/L (3.5-5.1); SGOT/AST 28 IU/L (3-35); SGPT/ALT 41 U/L (12-78); SODIUM 135 mmol/L (136-145); TOTAL PROTEIN 7.2 gm/dL (6.4-8.2); TROPONIN I < 0.015 ng/ml (<0.045)
[2017-09-20 13:57] LABS: BILIRUBIN NEGATIVE (NEGATIVE); BLOOD NEGATIVE (NEGATIVE); CLARITY CLEAR (CLEAR); COLOR YELLOW (YELLOW); GLUCOSE NEGATIVE (NEGATIVE); KETONE NEGATIVE (NEGATIVE); LEUKO ESTERASE NEGATIVE (NEGATIVE); NITRITE NEGATIVE (NEGATIVE); PH 6.5 (5.0-9.0); UROBILINOGEN 0.2 E.U./dl (0.2-1.0)
[2017-09-20 14:04] LABS: MUCOUS 1+
[2017-09-20] MEDS ORDERED: ZITHROMAX250 MG PO (14:49)
[2017-09-20] MEDS ORDERED: PREDNISONE50 MG PO (14:49)
== END 2017-09-20 15:10 | disposition home or self-care (01) ==
LOC: ED 12:42
PROVIDERS: Emergency Medicine
DX: J20.9 Acute bronchitis, unspecified (principal); E11.9 Type 2 diabetes mellitus without complications; I10 Essential (primary) hypertension; E66.9 Obesity, unspecified; Z79.4 Long term (current) use of insulin; Z79.899 Other long term (current) drug therapy

== ENCOUNTER 2017-10-02 09:23 | Emergency (ER) | payer OTHER ==
[~2017-10-02] VITALS: Ht 190.5 cm; Wt 108.0 kg
[2017-10-02 09:46] LABS: BASO # 0.1 10*3/uL (0.0-0.1); BASO % 0.8 % (0.0-1.0); EOS # 0.3 10*3/uL (0.0-0.4); HEMATOCRIT 40.1 % (42.0-52.0); HEMOGLOBIN 13.9 g/dl (14.0-18.0); LYMPH # 3.5 10*3/uL (1.3-4.4); LYMPH % 42.6 % (27.0-41.0); MEAN CELL VOLUME 86.8 fl (80.0-94.0); MEAN CORPUSCULAR HGB 30.1 pg (27.0-31.0); MEAN CORPUSCULAR HGB CONC 34.7 g/dl (33.0-37.0); MEAN PLATELET VOLUME 8.8 fl (9.6-12.3); MONO # 0.7 10*3/uL (0.1-1.0); MONO % 8.8 % (3.0-9.0); NEUT # 3.7 10*3/uL (2.3-7.9); NEUT % 44.3 % (47.0-73.0); PLATELET COUNT AUTOMATED 277 10*3/uL (130-400); RED BLOOD COUNT 4.62 10*6/uL (4.50-5.90); RED CELL DISTRI WIDTH 12.7 % (0-14.5); WHITE BLOOD COUNT 8.3 10*3/uL (4.8-10.8)
[2017-10-02 09:56] LABS: ACT PARTIAL THROMBO TIME 23.2 SECONDS (20.8-31.5); INTERNATIONAL NORM RATIO 0.9 (2.0-3.5)
[2017-10-02 10:02] LABS: ALBUMIN 3.4 gm/dl (3.1-4.5); ALKALINE PHOSPHATASE 112 U/L (45-117); BUN 11 mg/dl (7-24); CHLORIDE 103 mmol/L (98-107); CREATININE 0.74 mg/dL (0.70-1.30); POTASSIUM 3.8 mmol/L (3.5-5.1); SGOT/AST 29 IU/L (3-35); SGPT/ALT 39 U/L (12-78); SODIUM 137 mmol/L (136-145); TOTAL PROTEIN 6.7 gm/dL (6.4-8.2)
[2017-10-02 10:09] LABS: TROPONIN I < 0.015 ng/ml (<0.045)
[2017-10-02] MEDS ORDERED: LEVOFLOXACIN500 MG PO (13:01)
[2017-10-02] MEDS ORDERED: PREDNISONE20 M1 PO (13:01)
== END 2017-10-02 13:05 | disposition home or self-care (01) ==
LOC: ED 09:23
PROVIDERS: Emergency Medicine
DX: J20.9 Acute bronchitis, unspecified (principal); Z90.89 Acquired absence of other organs; Z98.890 Other specified postprocedural states; Z79.4 Long term (current) use of insulin; Z88.8 Allergy status to other drugs, medicaments and biological substances; Z87.01 Personal history of pneumonia (recurrent)

== ENCOUNTER 2017-10-25 10:02 | Emergency (ER) | payer SELFPAY ==
[~2017-10-25] VITALS: Ht 190.5 cm; Wt 108.9 kg
[~2017-10-25 10:02] MED LIST changes: +PREDNISONE20 M1 PO
[2017-10-25 10:34] LABS: BASO # 0.1 10*3/uL (0.0-0.1); BASO % 1.1 % (0.0-1.0); EOS # 0.3 10*3/uL (0.0-0.4); HEMATOCRIT 39.2 % (42.0-52.0); HEMOGLOBIN 13.6 g/dl (14.0-18.0); LYMPH # 2.6 10*3/uL (1.3-4.4); LYMPH % 36.9 % (27.0-41.0); MEAN CELL VOLUME 87.9 fl (80.0-94.0); MEAN CORPUSCULAR HGB 30.5 pg (27.0-31.0); MEAN CORPUSCULAR HGB CONC 34.7 g/dl (33.0-37.0); MEAN PLATELET VOLUME 9.2 fl (9.6-12.3); MONO # 0.6 10*3/uL (0.1-1.0); MONO % 8.8 % (3.0-9.0); NEUT # 3.4 10*3/uL (2.3-7.9); NEUT % 48.9 % (47.0-73.0); PLATELET COUNT AUTOMATED 255 10*3/uL (130-400); RED BLOOD COUNT 4.46 10*6/uL (4.50-5.90); RED CELL DISTRI WIDTH 12.9 % (0-14.5)
[2017-10-25 10:51] LABS: ALBUMIN 3.6 gm/dl (3.1-4.5); ALKALINE PHOSPHATASE 99 U/L (45-117); BUN 13 mg/dl (7-24); CHLORIDE 107 mmol/L (98-107); CREATININE 0.91 mg/dL (0.70-1.30); POTASSIUM 3.6 mmol/L (3.5-5.1); SGOT/AST 30 IU/L (3-35); SGPT/ALT 38 U/L (12-78); SODIUM 140 mmol/L (136-145); TOTAL PROTEIN 6.7 gm/dL (6.4-8.2)
[2017-10-25 10:53] LABS: TROPONIN I < 0.015 ng/ml (<0.045)
[2017-10-25] MEDS ORDERED: BENADRYL ALLERG25 M5 PO (11:02)
== END 2017-10-25 11:37 | disposition home or self-care (01) ==
LOC: ED 10:02
PROVIDERS: Student in an Organized Health Care Education/Training Program
DX: I10 Essential (primary) hypertension (principal); R21 Rash and other nonspecific skin eruption; E11.9 Type 2 diabetes mellitus without complications; M16.11 Unilateral primary osteoarthritis, right hip; K21.9 Gastro-esophageal reflux disease without esophagitis; E66.9 Obesity, unspecified; Z90.89 Acquired absence of other organs; Z98.890 Other specified postprocedural states; Z79.899 Other long term (current) drug therapy; Z88.8 Allergy status to other drugs, medicaments and biological substances; Z79.4 Long term (current) use of insulin

== ENCOUNTER 2018-12-13 20:21 | Inpatient (IN) | payer OTHER ==
[~2018-12-13] VITALS: Ht 190.5 cm; Wt 113.5 kg
[2018-12-13 20:21] VITALS: BP 139/92
[~2018-12-13 20:21] MED LIST changes: +BENADRYL ALLERG25 M5 PO; +CEPHALEXIN500 M1 PO; +SEPTDS PO
[2018-12-13 21:55] LABS: BASO # 0.1 10*3/uL (0.0-0.1); BASO % 0.7 % (0.0-1.0); EOS # 0.2 10*3/uL (0.0-0.4); EOS % 1.3 % (1.0-4.0); HEMATOCRIT 42.6 % (42.0-52.0); HEMOGLOBIN 14.4 g/dl (14.0-18.0); LYMPH # 2.7 10*3/uL (1.3-4.4); LYMPH % 20.3 % (27.0-41.0); MEAN CELL VOLUME 90.1 fl (80.0-94.0); MEAN CORPUSCULAR HGB 30.4 pg (27.0-31.0); MEAN CORPUSCULAR HGB CONC 33.8 g/dl (33.0-37.0); MEAN PLATELET VOLUME 9.4 fl (9.6-12.3); MONO % 7.4 % (3.0-9.0); NEUT # 9.2 10*3/uL (2.3-7.9); PLATELET COUNT AUTOMATED 298 10*3/uL (130-400); RED BLOOD COUNT 4.73 10*6/uL (4.50-5.90); RED CELL DISTRI WIDTH 12.4 % (0-14.5); WHITE BLOOD COUNT 13.2 10*3/uL (4.8-10.8)
[2018-12-13 22:03] VITALS: BP 134/76
[2018-12-13 22:17] LABS: ALBUMIN 3.6 gm/dl (3.1-4.5); ALKALINE PHOSPHATASE 107 U/L (45-117); BUN 14 mg/dl (7-24); CHLORIDE 106 mmol/L (98-107); CREATININE 1.08 mg/dL (0.70-1.30); POTASSIUM 3.8 mmol/L (3.5-5.1); SGOT/AST 14 IU/L (3-35); SGPT/ALT 27 U/L (12-78); SODIUM 139 mmol/L (136-145); TOTAL PROTEIN 7.5 gm/dL (6.4-8.2)
--- NOTE | 2018-12-13 23:38 | NUR ---
PATIENT REFUSED PICTURES OF WOUND
[2018-12-13] MEDS ORDERED: FLOMAX0.4 MG PO (23:43)
[2018-12-13] MEDS ORDERED: ADMELOG SO100 UNIT/1 SQ (23:44)
[2018-12-14] VITALS: BP 140/80
--- NOTE | 2018-12-14 | NUR ---
A 48, admitted to , under the services of DAVID Mccarthy DO with a diagnosis of ABSCESS OF BUTTOCK, SEPSIS. Chief complaint is ABSCESS. Patient arrived via bed from ER. Monitor applied. Initial assessment completed. Vital signs taken and recorded. DAVID MCCARTHY DO notified of admission to the unit. Orders received. See assessment for past medical history, medications and allergies. Patient and/or family oriented to unit. [facility] visitation policy reviewed. Clothing/patient valuable form completed. TIFFANI CRAFT
[2018-12-14] MEDS ORDERED: TRULICITY1.5 MG/0.5 SC (00:25)
--- NOTE | 2018-12-14 01:10 | NUR ---
PRN NORCO GIVEN FOR PT COMLAINTS OF PAIN AT THE SITE OF ABSCESS. 04/01. CALL LIGHT WITHIN REACH, WILL MONITOR
--- NOTE | 2018-12-14 01:44 | NUR ---
ASKED DR. BARTHOLOMEW AT THIS TIME IF IT WOULD BE OK TO GET SOMETHING STRONGER THAN JUST TYLENOL FOR THE PAIN BECAUSE THE ABSCES IS VERY PAINFUL. SHE STATED THAT WE COULD DO NORCO 5/325 Q4H. ALSO NOTIFIED HER THAT PATIENT NOW TAKES BASALGAR 70 UNITS AT NIGHT AND NOT 65 ANYMORE. SHE STATED THAT IT WAS OK TO CHANGE IT
--- NOTE | 2018-12-14 02:00 | NUR ---
PRN NORCO NOT REALLY EFFECTIVE PER PT, PAIN NOW 01/30
--- NOTE | 2018-12-14 06:09 | NUR ---
PRN NORCO GIVEN FOR PT COMPLAINTS OF PAIN ATSITE OF WOUND RATING IT 9/10. CALL LIGHT WITHIN REACH, WILL MONITOR
[2018-12-14 06:20] LABS: BASO # 0.1 10*3/uL (0.0-0.1); BASO % 0.7 % (0.0-1.0); EOS # 0.2 10*3/uL (0.0-0.4); EOS % 1.9 % (1.0-4.0); HEMATOCRIT 41.3 % (42.0-52.0); HEMOGLOBIN 13.7 g/dl (14.0-18.0); LYMPH # 3.2 10*3/uL (1.3-4.4); LYMPH % 25.3 % (27.0-41.0); MEAN CORPUSCULAR HGB 30.2 pg (27.0-31.0); MEAN CORPUSCULAR HGB CONC 33.2 g/dl (33.0-37.0); MEAN PLATELET VOLUME 9.3 fl (9.6-12.3); MONO # 1.1 10*3/uL (0.1-1.0); MONO % 8.7 % (3.0-9.0); NEUT % 63.2 % (47.0-73.0); PLATELET COUNT AUTOMATED 258 10*3/uL (130-400); RED BLOOD COUNT 4.54 10*6/uL (4.50-5.90); RED CELL DISTRI WIDTH 12.3 % (0-14.5); WHITE BLOOD COUNT 12.6 10*3/uL (4.8-10.8)
[2018-12-14 06:53] LABS: CHLORIDE 106 mmol/L (98-107); POTASSIUM 3.7 mmol/L (3.5-5.1); SODIUM 140 mmol/L (136-145)
[2018-12-14 07:01] LABS: ALBUMIN 3.3 gm/dl (3.1-4.5); ALKALINE PHOSPHATASE 98 U/L (45-117); BUN 11 mg/dl (7-24); CHOLESTEROL 137 mg/dL (<200); CREATININE 0.86 mg/dL (0.70-1.30); FREE T4 1.01 ng/dl (0.76-1.46); HDL CHOLESTEROL 30 mg/dl (40-60); LDL CHOLESTEROL 76 mg/dL (9-159); PHOSPHOROUS 3.3 mg/dL (2.5-4.9); SGOT/AST 15 IU/L (3-35); SGPT/ALT 23 U/L (12-78); TOTAL PROTEIN 7.1 gm/dL (6.4-8.2); TRIGLYCERIDES 156 mg/dl (<150); VLDL CHOLESTEROL 31 mg/dL (6-40)
--- NOTE | 2018-12-14 07:07 | NUR ---
SPOKE WITH DR. BARTHOLOMEW AT THIS TIME CONCEERNING WOUND CARE ORDERS. SHE JUST ORDERED WARM COMPRESSES AND SOMETHING TO COVER IT IF IT DRAINS
[2018-12-14 08:00] VITALS: BP 142/78
--- NOTE | 2018-12-14 08:22 | NUR ---
PT RESTING IN BED. NO DISTRESS NOTED. WILL MONITOR
--- NOTE | 2018-12-14 08:29 | NUR ---
FESTUS BROWN [id number] Please refer to the physician's history and physical for past medical history, comorbid conditions, and allergies. Diagnosis: ABSCESS SEPSIS Justice Score: 22,LOW OR NO RISK WOUND DESCRIPTIONS: Wound Number: 1 Location of the wound: LEFT BUTTOCK Type of wound: ABSCESS Thickness: Full Size: 1.2cm X 1.7cm X 0.1cm Tunneling: NONE Undermining: NONE Sinus Tract: NONE Presence of Exudate: NONE Amount: None Color: Red, PURPLE, WHITE Odor: Foul Periwound Skin Appearance: Erythema 5.5cm X 5cm Wound edges: APPROXIMATED Pain (associated with wound): TENDER TO TOUCH How does patient state this happened? PATIENT STATES THIS AREA STARTED SIX DAYS AGO AND HAS GOTTEN WORSE SINCE ONSET. Surface the patient is resting on: Position Pro SKIN PREVENTION RECOMMENDATION: 1. Pressure redistribution support surface as appropriate 2. Elevate heels 3. Remove boots/TEDS every shift and reapply 4. Head of bed 30 degrees as tolerated 5. Assess nutrition and hydration 6. Manage moisture 7. Avoid the use of containment devices while in bed 8. Use absorptive products on surfaces limit layers of linens on bed 9. Turn and reposition every 1-2 hours in bed and every 1 hour in chair as tolerated 10. Weight shifts every 15 minutes while up in chair 11. Offloading with pillows or device to keep heels elevated off bed 12. Monitor skin at least every shift 13. Inspect under medical devices twice a day WOUND TREATMENT RECOMMENDATIONS: IMAGING STUDIES TO LEFT BUTTOCK. CONSULT SURGERY FOR POSSIBLE I&D OF LEFT BUTTOCK. FULL THICKNESS GUIDELINES TO LEFT BUTTOCKS: CLEANSE WITH NSS APPLY SUREPREP AROUND THE WOUND ALLOW TO DRY AND APPLY THERAHONEY COVER WITH OPTIFOAM GENTLE.
--- NOTE | 2018-12-14 11:18 | NUR ---
PT REQUESTED AND GIVEN NORCO FOR C/O BUTTOCK PAIN PT RATES PAIN 8/10 WILL MONITOR
--- NOTE | 2018-12-14 11:50 | NUR ---
Diana Bullard NP notified of wound care recommendations.
[2018-12-14 12:00] VITALS: BP 123/65
--- NOTE | 2018-12-14 14:00 | NUR ---
WARM COMPRESS APPLIED ORDERED
--- NOTE | 2018-12-14 14:18 | NUR ---
Wafer Cleaner in to talk to patient. Patient states lives at HOME with GIRLFRIEND. There are FEW steps in the home. Physician: RADHA Pharmacy: [facility] [place] health services: NONE Patient's level of ADLs: INDEPENDENT Patient has working utilities: YES DME: NONE Follow-up physician's appointment after d/c: WILL BE MADE BY HOSPITALIST NURSE DIRECTOR ON DISCHARGE Does patient want to access PORTAL?: NO Discharge plan PT LIVES AT HOME WITH GIRLFRIEND AND IS INDEPENDENT IN CARE. DENIES NEEDS ON DISCHARGE AT THIS TIME. WILL CONTINUE TO FOLLOW. WILL HAVE A RIDE HOME ON DISCHARGE. . DHARA VIEIRA
[2018-12-14 16:00] VITALS: BP 120/71
--- NOTE | 2018-12-14 16:31 | NUR ---
PT REQUESTED AND GIVEN NORCO FOR C/O BUTTOCK PAIN/ PT RATES PAIN 6/10 WILL MONITOR
--- NOTE | 2018-12-14 17:43 | NUR ---
[facility]
[2018-12-14 20:00] VITALS: BP 124/64
--- NOTE | 2018-12-14 22:35 | NUR ---
PRN NORCO GIVEN FOR PT COMPLAINTS OF PAIN AT WOUND SITE. 01/30. CALL LIGHT WITHIN REACH, WILL MONITOR
--- NOTE | 2018-12-14 23:45 | NUR ---
PRN MEDICATION APPERAS EFFECTIVE, PT SLEEPING
[2018-12-15] VITALS (8 sets, daily range): BP systolic 116–126; BP diastolic 57–87
--- NOTE | 2018-12-15 01:05 | NUR ---
PRB TYLENOL GIVEN FOR LOW GRADE FEVER OF 100.2. WILL MONITOR
--- NOTE | 2018-12-15 03:34 | NUR ---
24 HR chart check completed.
--- NOTE | 2018-12-15 05:40 | NUR ---
PRN TYLENOL EFFECTIVE, TEMPERATURE 98.8
--- NOTE | 2018-12-15 09:26 | NUR ---
C/O PAIN OF 8/10 TO LEFT BUTTOCK. NORCO GIVEN AT THIS TIME WILL CONT TO MONITOR
--- NOTE | 2018-12-15 10:26 | NUR ---
NORCO EFF PER PT. WILL CONT TO MONITOR. CALL LIGHT IN REACH.
--- NOTE | 2018-12-15 10:53 | NUR ---
PHYSICIAN WAS NOTIFIED OF DR. ELENA CONSULT. RESPONSE OF NOTIFICATION WAS I SPOKE TO NANCY ABOUT IT ALREADY. VENESSA STRICKLAND
--- NOTE | 2018-12-15 12:45 | NUR ---
PT CONTINUES TO DENY NEEDS ON DISCHARGE. WILL CONTINUE TO FOLLOW.
--- NOTE | 2018-12-15 17:15 | NUR ---
NORCO GIVEN AT THIS TIME FOR C/O OF 8 TO LEFT BUTTOCK. WILL CONT TO MONITOR.
--- NOTE | 2018-12-15 18:15 | NUR ---
[facility] EFF WILL MONITOR
[2018-12-16] VITALS: BP 135/74
--- NOTE | 2018-12-16 05:13 | NUR ---
24 HR chart check completed.
[2018-12-16 07:36] VITALS: BP 114/68
[2018-12-16 09:33] LABS: BASO # 0.1 10*3/uL (0.0-0.1); EOS # 0.4 10*3/uL (0.0-0.4); EOS % 3.5 % (1.0-4.0); HEMATOCRIT 41.5 % (42.0-52.0); LYMPH # 3.1 10*3/uL (1.3-4.4); LYMPH % 30.9 % (27.0-41.0); MEAN CELL VOLUME 89.6 fl (80.0-94.0); MEAN CORPUSCULAR HGB 30.2 pg (27.0-31.0); MEAN CORPUSCULAR HGB CONC 33.7 g/dl (33.0-37.0); MEAN PLATELET VOLUME 9.1 fl (9.6-12.3); MONO # 0.8 10*3/uL (0.1-1.0); MONO % 8.5 % (3.0-9.0); NEUT # 5.5 10*3/uL (2.3-7.9); NEUT % 55.8 % (47.0-73.0); PLATELET COUNT AUTOMATED 274 10*3/uL (130-400); RED BLOOD COUNT 4.63 10*6/uL (4.50-5.90); RED CELL DISTRI WIDTH 12.2 % (0-14.5); WHITE BLOOD COUNT 9.9 10*3/uL (4.8-10.8)
[2018-12-16 09:42] LABS: ALBUMIN 3.5 gm/dl (3.1-4.5); ALKALINE PHOSPHATASE 98 U/L (45-117); BUN 8 mg/dl (7-24); CHLORIDE 104 mmol/L (98-107); CREATININE 0.93 mg/dL (0.70-1.30); POTASSIUM 3.9 mmol/L (3.5-5.1); SGOT/AST 15 IU/L (3-35); SGPT/ALT 25 U/L (12-78); SODIUM 140 mmol/L (136-145); TOTAL PROTEIN 7.5 gm/dL (6.4-8.2)
--- NOTE | 2018-12-16 11:24 | NUR ---
pt refusing wound photos
[2018-12-16 11:27] VITALS: BP 122/82
[2018-12-16] MEDS ORDERED: AUGMENTIN 875-875 MG PO (11:38)
--- NOTE | 2018-12-16 13:17 | NUR ---
PT WILL RETURN HOME ON DISCHARGE WHEN MEDICALLY STABLE. WILL CONTINUE TO FOLLOW.
--- NOTE | 2018-12-16 13:46 | NUR ---
PT DISCHARGED AT THIS TIME. IV REMOVED AND PRESSURE DRESSING APPLIED. VERBALIZED UNDERSTANDING OF DISCHARGE INSTRUCTIONS.
== END 2018-12-16 13:46 | disposition home or self-care (01) | DRG 854 ==
LOC: ED 20:21 → 5E 23:23 → EDHOLD 23:23 → 5E 23:36
PROVIDERS: Internal Medicine; Nurse Practitioner Family; Registered Nurse; ADMIT Emergency Medicine
PROC: 0J990ZZ Drainage of Buttock Subcutaneous Tissue and Fascia, Open Approach (ICD-10-PCS; principal; 2018-12-15)
DX: A41.9 Sepsis, unspecified organism (principal); E44.0 Moderate protein-calorie malnutrition; L03.317 Cellulitis of buttock; M16.11 Unilateral primary osteoarthritis, right hip; E66.9 Obesity, unspecified; K21.9 Gastro-esophageal reflux disease without esophagitis; E55.9 Vitamin D deficiency, unspecified; I10 Essential (primary) hypertension; E11.65 Type 2 diabetes mellitus with hyperglycemia; Z88.8 Allergy status to other drugs, medicaments and biological substances; Z87.01 Personal history of pneumonia (recurrent); Z82.49 Family history of ischemic heart disease and other diseases of the circulatory system; Z83.3 Family history of diabetes mellitus; Z79.899 Other long term (current) drug therapy; Z79.4 Long term (current) use of insulin; Z68.31 Body mass index [BMI] 31.0-31.9, adult

== ENCOUNTER → 2018-12-17 | Outpatient (CLI) | payer OTHER ==
[~2018-12-17] MED LIST changes: +ADMELOG SO100 UNIT/1 SQ; +AUGMENTIN 875-875 MG PO; +FLOMAX0.4 MG PO; +TRULICITY1.5 MG/0.5 SC
== END | disposition home or self-care (01) ==
LOC: WOUNDCARE 09:10
DX: L02.31 Cutaneous abscess of buttock (principal); E11.9 Type 2 diabetes mellitus without complications; I10 Essential (primary) hypertension; K21.9 Gastro-esophageal reflux disease without esophagitis

== ENCOUNTER 2019-03-01 06:54 | Inpatient (IN) | payer OTHER ==
[~2019-03-01] VITALS: Ht 190.5 cm; Wt 113.1 kg
[2019-03-01] VITALS (7 sets, daily range): BP systolic 101–145; BP diastolic 56–86
[2019-03-01 07:42] LABS: BASO # 0.1 10*3/uL (0.0-0.1); BASO % 1.1 % (0.0-1.0); EOS # 0.8 10*3/uL (0.0-0.4); HEMOGLOBIN 14.6 g/dl (14.0-18.0); LYMPH # 3.6 10*3/uL (1.3-4.4); LYMPH % 32.6 % (27.0-41.0); MEAN CELL VOLUME 88.8 fl (80.0-94.0); MEAN CORPUSCULAR HGB 30.2 pg (27.0-31.0); MEAN PLATELET VOLUME 9.3 fl (9.6-12.3); MONO # 0.7 10*3/uL (0.1-1.0); MONO % 6.7 % (3.0-9.0); NEUT # 5.8 10*3/uL (2.3-7.9); NEUT % 52.2 % (47.0-73.0); PLATELET COUNT AUTOMATED 317 10*3/uL (130-400); RED BLOOD COUNT 4.84 10*6/uL (4.50-5.90); RED CELL DISTRI WIDTH 12.7 % (0-14.5); WHITE BLOOD COUNT 11.1 10*3/uL (4.8-10.8)
[2019-03-01 07:53] LABS: ACT PARTIAL THROMBO TIME 26.8 SECONDS (20.0-32.1)
[2019-03-01 07:58] LABS: ALBUMIN 3.7 gm/dl (3.1-4.5); ALKALINE PHOSPHATASE 112 U/L (45-117); BUN 11 mg/dl (7-24); CHLORIDE 102 mmol/L (98-107); CREATININE 0.89 mg/dL (0.70-1.30); LIPASE 174 U/L (73-393); POTASSIUM 3.9 mmol/L (3.5-5.1); SGOT/AST 18 IU/L (3-35); SGPT/ALT 24 U/L (12-78); SODIUM 138 mmol/L (136-145); TOTAL PROTEIN 7.6 gm/dL (6.4-8.2)
[2019-03-01 08:00] LABS: TROPONIN I < 0.015 ng/ml (<0.045)
[2019-03-01 08:00] LABS: BILIRUBIN NEGATIVE (NEGATIVE); BLOOD NEGATIVE (NEGATIVE); CLARITY CLEAR (CLEAR); COLOR YELLOW (YELLOW); GLUCOSE NEGATIVE (NEGATIVE); KETONE NEGATIVE (NEGATIVE); LEUKO ESTERASE NEGATIVE (NEGATIVE); NITRITE NEGATIVE (NEGATIVE); SPECIFIC GRAVITY 1.015 (1.005-1.030); UROBILINOGEN 0.2 E.U./dl (0.2-1.0)
--- NOTE | 2019-03-01 10:12 | NUR ---
Time: 1011 A 48 year old MALE admitted to 5E under services of NAS MORAN DO. Pt. arrived via bed from ER. Chief complaint: LUQ PAIN. RUDY SANTOS
--- NOTE | 2019-03-01 11:25 | NUR ---
NOTIFIED OF CONSULT. NEW ORDER FOR FLEETS ENEMA. WILL CALL WITH RESULT.
--- NOTE | 2019-03-01 15:27 | NUR ---
PT CLEAR AFTER 2 FLEETS AND 2 TAP WATER ENEMAS.
--- NOTE | 2019-03-01 17:04 | NUR ---
PT OFF THE FLOOR FOR A COLONOSCOPY.
--- NOTE | 2019-03-01 18:52 | NUR ---
PT RETURNED TO FLOOR.
--- NOTE | 2019-03-01 19:00 | NUR ---
BED SIDE REPORT RECEIVED FROM DAYSHIFT RN. PATIENT IS ALERT AND ORIENTED AND RESPIRATIONS EASY/UNLABORED. PT STATES HE FEELS GREAT AND HOPES TO GO HOME TOMORROW. IV INTACT, CALL LIGHT IN REACH.
--- NOTE | 2019-03-01 23:28 | NUR ---
PT STATED "IF I CANT GET PAIN MEDS IM GOING TO LEAVE" DR. PISANO NOTIFIED OF PT REQUEST. NO ORDERS RECEIVED AT THIS TIME.
[2019-03-02] VITALS: BP 93/53
--- NOTE | 2019-03-02 06:12 | NUR ---
PT DENIED BLOOD SUGAR TEST THIS AM.
[2019-03-02 06:25] LABS: BASO # 0.1 10*3/uL (0.0-0.1); BASO % 1.2 % (0.0-1.0); EOS # 0.8 10*3/uL (0.0-0.4); EOS % 8.4 % (1.0-4.0); HEMATOCRIT 42.6 % (42.0-52.0); HEMOGLOBIN 14.4 g/dl (14.0-18.0); LYMPH # 2.6 10*3/uL (1.3-4.4); LYMPH % 26.9 % (27.0-41.0); MEAN CELL VOLUME 88.4 fl (80.0-94.0); MEAN CORPUSCULAR HGB 29.9 pg (27.0-31.0); MEAN CORPUSCULAR HGB CONC 33.8 g/dl (33.0-37.0); MEAN PLATELET VOLUME 9.4 fl (9.6-12.3); MONO # 0.7 10*3/uL (0.1-1.0); MONO % 6.9 % (3.0-9.0); NEUT # 5.4 10*3/uL (2.3-7.9); NEUT % 56.4 % (47.0-73.0); PLATELET COUNT AUTOMATED 282 10*3/uL (130-400); RED BLOOD COUNT 4.82 10*6/uL (4.50-5.90); RED CELL DISTRI WIDTH 12.7 % (0-14.5); WHITE BLOOD COUNT 9.5 10*3/uL (4.8-10.8)
[2019-03-02 06:37] LABS: BUN 12 mg/dl (7-24); CHLORIDE 104 mmol/L (98-107); CHOLESTEROL 133 mg/dL (<200); CREATININE 0.87 mg/dL (0.70-1.30); POTASSIUM 3.9 mmol/L (3.5-5.1); SODIUM 138 mmol/L (136-145); TRIGLYCERIDES 170 mg/dl (<150); VLDL CHOLESTEROL 34 mg/dL (6-40)
[2019-03-02 06:47] LABS: HDL CHOLESTEROL 26 mg/dl (40-60); LDL CHOLESTEROL 73 mg/dL (9-159)
[2019-03-02 07:25] LABS: ACT PARTIAL THROMBO TIME 27.6 SECONDS (20.0-32.1); INTERNATIONAL NORM RATIO 0.9 (2.0-3.5)
[2019-03-02 07:39] LABS: VITAMIN D, 25-HYDROXY 30.2 ng/mL (30-100)
[2019-03-02 08:00] VITALS: BP 126/60
--- NOTE | 2019-03-02 10:58 | NUR ---
Discharge instructions reviewed with patient. Patient receptive and verbalizes understanding. Follow-up care understood Written instructions given to patient. iv removed, pt has no questions on discharge at this time. declines wheelchair for REGGIE Dial
--- NOTE | 2019-03-02 12:34 | NUR ---
Infertility Nurse in to talk to patient. Patient states lives at HOME with GIRLFRIEND. There are OUTSIDE steps in the home. Physician: RADHA Pharmacy: [facility] [place] health services: NONE Patient's level of ADLs: INDEPENDENT Patient has working utilities: YES DME: NONE Follow-up physician's appointment after d/c: WILL BE MADE BY HOSPITALIST NURSE DIRECTOR ON DISCHARGE Does patient want to access PORTAL?: NO Discharge plan PT LIVES AT HOME WITH GIRLFRIEND AND IS INDEPENDENT IN HIS CARE. DENIES THAT HE WILL HAVE ANY NEEDS ON DISCHARGE. STATES HE WILL RETURN HOME.. NO NEW NEEDS. WILL HAVE A RIDE HOME. WILL CONTINUE TO FOLLOW. DHARA VIEIRA
== END 2019-03-02 10:50 | disposition home or self-care (01) | DRG 378 ==
LOC: ED 06:54 → EDHOLD 09:29 → 5E 09:29
PROVIDERS: Emergency Medicine; ADMIT Internal Medicine
PROC: 0DJD8ZZ Inspection of Lower Intestinal Tract, Via Natural or Artificial Opening Endoscopic (ICD-10-PCS; principal; 2019-03-01)
DX: K92.2 Gastrointestinal hemorrhage, unspecified (principal); L02.91 Cutaneous abscess, unspecified; E11.43 Type 2 diabetes mellitus with diabetic autonomic (poly)neuropathy; R10.12 Left upper quadrant pain; K31.84 Gastroparesis; E11.65 Type 2 diabetes mellitus with hyperglycemia; E83.41 Hypermagnesemia; I10 Essential (primary) hypertension; G89.29 Other chronic pain; M54.9 Dorsalgia, unspecified; M25.569 Pain in unspecified knee; M16.11 Unilateral primary osteoarthritis, right hip; K59.00 Constipation, unspecified; K21.9 Gastro-esophageal reflux disease without esophagitis; E66.09 Other obesity due to excess calories; Z68.31 Body mass index [BMI] 31.0-31.9, adult; Z79.4 Long term (current) use of insulin; Z88.8 Allergy status to other drugs, medicaments and biological substances; Z87.01 Personal history of pneumonia (recurrent); Z82.49 Family history of ischemic heart disease and other diseases of the circulatory system; Z83.3 Family history of diabetes mellitus

== ENCOUNTER 2019-04-20 21:20 | Emergency (ER) | payer OTHER ==
[~2019-04-20] VITALS: Ht 190.5 cm; Wt 112.9 kg
[2019-04-20 22:17] LABS: BASO # 0.1 10*3/uL (0.0-0.1); BASO % 1.1 % (0.0-1.0); EOS # 0.3 10*3/uL (0.0-0.4); EOS % 3.4 % (1.0-4.0); HEMATOCRIT 41.3 % (42.0-52.0); HEMOGLOBIN 13.9 g/dl (14.0-18.0); LYMPH # 3.2 10*3/uL (1.3-4.4); LYMPH % 36.9 % (27.0-41.0); MEAN CORPUSCULAR HGB CONC 33.7 g/dl (33.0-37.0); MEAN PLATELET VOLUME 9.1 fl (9.6-12.3); MONO # 0.8 10*3/uL (0.1-1.0); MONO % 9.1 % (3.0-9.0); NEUT # 4.3 10*3/uL (2.3-7.9); NEUT % 49.3 % (47.0-73.0); PLATELET COUNT AUTOMATED 295 10*3/uL (130-400); RED BLOOD COUNT 4.64 10*6/uL (4.50-5.90); RED CELL DISTRI WIDTH 12.6 % (0-14.5); WHITE BLOOD COUNT 8.7 10*3/uL (4.8-10.8)
[2019-04-20 22:32] LABS: ALBUMIN 3.4 gm/dl (3.1-4.5); ALKALINE PHOSPHATASE 99 U/L (45-117); BUN 9 mg/dl (7-24); CHLORIDE 105 mmol/L (98-107); CREATININE 0.84 mg/dL (0.70-1.30); POTASSIUM 3.8 mmol/L (3.5-5.1); SGOT/AST 20 IU/L (3-35); SGPT/ALT 27 U/L (12-78); SODIUM 138 mmol/L (136-145); TOTAL PROTEIN 7.1 gm/dL (6.4-8.2)
[2019-04-20 22:36] LABS: TROPONIN I < 0.015 ng/ml (<0.045)
[2019-04-21] MEDS ORDERED: PEPCID20 MG PO (02:21)
== END 2019-04-21 02:42 | disposition home or self-care (01) ==
LOC: ED 21:20
PROVIDERS: Internal Medicine
DX: R07.89 Other chest pain (principal); E11.65 Type 2 diabetes mellitus with hyperglycemia; R20.2 Paresthesia of skin; G89.29 Other chronic pain; I10 Essential (primary) hypertension; K21.9 Gastro-esophageal reflux disease without esophagitis; E66.9 Obesity, unspecified; Z88.8 Allergy status to other drugs, medicaments and biological substances; Z79.899 Other long term (current) drug therapy; Z79.4 Long term (current) use of insulin

== ENCOUNTER 2019-05-15 06:17 | Inpatient (IN) | payer OTHER ==
[~2019-05-15] VITALS: Ht 188 cm; Wt 112.7 kg
--- NOTE | ~2019-05-15 | EKG ---
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
--- NOTE | ~2019-05-15 | CON ---
[place], [place] REPORT OF CONSULTATION NAME: FESTUS BROWN LOCATED [facility]IN [facility] #: [id number] UNIT #: [id number] ROOM: 426 DOCTOR: ABBI FRIEND MD BIRTHDATE: [birth year] DOS: 05/15/2019 CARDIOLOGY CONSULTATION REASON FOR CONSULTATION: Chest pain. HISTORY OF PRESENT ILLNESS: The patient is a 48-year-old patient with history of hypertension, diabetes, presented to the Emergency Room for chest pain. Apparently, he woke up around 4 in the morning, noted to have some tingling, numbness in his hands and feet as well as his face. At that time, he noted some midsternal discomfort. He described this as an ache and heaviness that lasted for several hours. There is no radiation of his pain. No nausea or diaphoresis. No palpitation or dizziness. No shortness of breath. He was admitted to the hospital and Cardiology consulted for further recommendations. His blood sugar has been running high recently for the last 2 weeks. He stopped taking his Trulicity due to the side effects including pain in the left hip and lower abdominal area. At the time of examination, the patient is alert, comfortable. Denies any chest pain, shortness of breath. No PND, no orthopnea. No nausea, vomiting, diarrhea. No fever and chills. No bladder or bowel symptoms, no neurologic symptoms. REVIEW OF SYSTEMS: Review of 10 systems negative except as mentioned above. PAST MEDICAL HISTORY: 1. Hypertension. 2. Diabetes type 2. 3. Acid reflux. 4. Vitamin D deficiency. PAST SURGICAL HISTORY: History of laryngoscopy, bronchoscopy and history of tonsillectomy. SOCIAL HISTORY: The patient does not smoke, does not drink, does not use illicit drugs. FAMILY HISTORY: Mother in her 60s from heart disease. Father has hypertension, living, age 72. ALLERGIES: Reviewed. HOME MEDICATIONS: Reviewed. PHYSICAL EXAMINATION: VITAL SIGNS: Blood pressure 116/72, pulse 69, respirations 18, weight 112.6 kg, BMI 31.9. GENERAL: Alert, comfortable, in no acute distress. NECK: Supple, no distended neck veins, no carotid bruit. CHEST: Symmetrical, nontender. LUNGS: Clear to auscultation bilaterally. HEART: Regular rhythm, no S3, no palpable thrills. [place], [place] REPORT OF CONSULTATION NAME: FESTUS BROWN UNIT #: [id number] ROOM: 426 DOCTOR: RONNA BANEGAS,ABBI BIRTHDATE: [birth year] ABDOMEN: Benign, nontender. Bowel sounds normal. EXTREMITIES: Showed no edema. Distal pulses palpable. SKIN: Warm and dry. No cyanosis, no clubbing. RECTAL: Deferred. GENITOURINARY: Deferred. NEUROLOGIC: Alert with no focal neurologic deficit. MUSCULOSKELETAL: No joint tenderness or swelling. PSYCHIATRIC: The patient is alert with good mood and affect. REVIEW OF THE DIAGNOSTIC TESTS: EKG shows sinus rhythm with right bundle branch block. CBC and chemistry unremarkable. Cardiac troponins are negative x 3. Exercise nuclear stress test on 09/18/2017 showed no ischemia. The patient is exercised for 10 minutes and achieved 87% target heart rate and 12.5 METs. Echo from 08/2017 showed LV hypertrophy. IMPRESSION: 1. Chest pain, atypical, myocardial infarction ruled out. 2. Hypertension, currently controlled. 3. Right bundle branch block. 4. Diabetes type 2. 5. Non-morbid obesity. 6. Acid reflux. RECOMMENDATIONS: 1. The patient's chest pain, atypical, does not appear to be cardiac. The patient had a normal stress test and exercised on treadmill for 10 minutes and achieved 12.5 METs in 08/2017. 2. I would not recommend no further cardiac testing at this time, the patient is feeling better, he can be discharged home from the cardiac standpoint. 3. The patient develops any chest pain while in the hospital, I would recommend a stress test on Friday. 4. Risk factor modification for diet, exercise, weight loss discussed. 5. There was no family at bedside at the time of examination. 6. Above recommendations were discussed with the patient and all questions were answered. ABBI FREIND MD CM:CONSTR:REPORT OF CONSULTATION [id number] 05/15/19 0238 interface
[~2019-05-15 06:17] MED LIST changes: +PEPCID20 MG PO
[2019-05-15 06:19] VITALS: BP 173/72
--- NOTE | 2019-05-15 06:25 | NUR ---
ASSESSMENT COMPLETE, PT WAITING TO BE SEEN BY MD IN NO ACUTE DISTRESS
--- NOTE | 2019-05-15 06:36 | NUR ---
DR. TOVAR IN TO EVALUATE PT
--- NOTE | 2019-05-15 06:50 | NUR ---
RESOURCES REPRESENTATIVE AT BEDSIDE TO DRAW LABS ORDERED
[2019-05-15 06:59] LABS: BASO # 0.1 10*3/uL (0.0-0.1); BASO % 1.1 % (0.0-1.0); EOS # 0.2 10*3/uL (0.0-0.4); EOS % 2.3 % (1.0-4.0); HEMATOCRIT 41.4 % (42.0-52.0); LYMPH # 3.3 10*3/uL (1.3-4.4); LYMPH % 36.1 % (27.0-41.0); MEAN CELL VOLUME 89.2 fl (80.0-94.0); MEAN CORPUSCULAR HGB 30.2 pg (27.0-31.0); MEAN CORPUSCULAR HGB CONC 33.8 g/dl (33.0-37.0); MEAN PLATELET VOLUME 9.3 fl (9.6-12.3); MONO # 0.7 10*3/uL (0.1-1.0); NEUT # 4.7 10*3/uL (2.3-7.9); NEUT % 52.3 % (47.0-73.0); PLATELET COUNT AUTOMATED 288 10*3/uL (130-400); RED BLOOD COUNT 4.64 10*6/uL (4.50-5.90); RED CELL DISTRI WIDTH 12.8 % (0-14.5)
--- NOTE | 2019-05-15 07:07 | NUR ---
REPORT TO TJ SHEPHERD, CARE TRANSFERRED
[2019-05-15 07:09] LABS: ACT PARTIAL THROMBO TIME 26.2 SECONDS (20.0-32.1); INTERNATIONAL NORM RATIO 0.9 (2.0-3.5)
[2019-05-15 07:14] LABS: ALBUMIN 3.5 gm/dl (3.1-4.5); ALKALINE PHOSPHATASE 108 U/L (45-117); BUN 14 mg/dl (7-24); CHLORIDE 104 mmol/L (98-107); CREATININE 0.89 mg/dL (0.70-1.30); LIPASE 156 U/L (73-393); POTASSIUM 3.9 mmol/L (3.5-5.1); SGOT/AST 19 IU/L (3-35); SGPT/ALT 33 U/L (12-78); SODIUM 136 mmol/L (136-145); TOTAL PROTEIN 7.1 gm/dL (6.4-8.2)
[2019-05-15 07:18] LABS: TROPONIN I < 0.015 ng/ml (<0.045)
[2019-05-15 08:14] VITALS: BP 168/70
[2019-05-15 08:35] VITALS: BP 135/83
--- NOTE | 2019-05-15 08:35 | NUR ---
A 48, admitted to , under the services of ISAAK Burgess DO with a diagnosis of CHEST PAIN. Chief complaint is HYPERGLYCEMIA. Patient arrived via ambulatory from ER. Monitor applied. Initial assessment completed. Vital signs taken and recorded. ISAAK BURGESS DO notified of admission to the unit. Orders received. See assessment for past medical history, medications and allergies. Patient and/or family oriented to unit. [facility] visitation policy reviewed. Clothing/patient valuable form completed. [place] EID A
[2019-05-15] MEDS ORDERED: ASPIRIN CHEWABL81 MG PO (08:51)
[2019-05-15] MEDS ORDERED: OZEMPIC0.25 MG/01 SQ (08:51)
[2019-05-15] MEDS ORDERED: VITAMIN D22000 UNIT PO (08:52)
--- NOTE | 2019-05-15 08:52 | NUR ---
MED REC UPDATED AT BEDSIDE.
[2019-05-15 12:00] VITALS: BP 116/78
[2019-05-15 12:41] LABS: BILIRUBIN NEGATIVE (NEGATIVE); BLOOD NEGATIVE (NEGATIVE); CLARITY CLEAR (CLEAR); COLOR YELLOW (YELLOW); GLUCOSE NEGATIVE (NEGATIVE); KETONE NEGATIVE (NEGATIVE); LEUKO ESTERASE NEGATIVE (NEGATIVE); NITRITE NEGATIVE (NEGATIVE); UROBILINOGEN 0.2 E.U./dl (0.2-1.0)
[2019-05-15 12:47] LABS: RBC 0-2 rbc/hpf (0-2); WBC 0-2 wbc/hpf (0-5)
--- NOTE | 2019-05-15 13:34 | NUR ---
CALLED TO PTs ROOM. C/O HANDS FEELING "FUNNY" AND DESCRIBED "BULDGING" DENIES PINS OR NEEDLE LIKE FEELINS. STATES THIS IS THE SAME THING THAT HAPPENED AT HOME. DENIES HISTORY OF NEUROPATHY IN HANDS. VSS. BSG 235. NOTIFIED .
[2019-05-15 13:38] VITALS: BP 135/81
--- NOTE | 2019-05-15 15:54 | NUR ---
Discharge instructions reviewed with patient/family. Patient receptive and verbalizes understanding. Follow-up care arranged. Written instructions given to patient/family. [place] E[facility]
== END 2019-05-15 16:43 | disposition home or self-care (01) | DRG 203 ==
LOC: ED 06:17 → 4E 08:12 → EDHOLD 08:12 → 4E 08:31
PROVIDERS: Emergency Medicine Emergency Medical Services; ADMIT Internal Medicine
DX: M94.0 Chondrocostal junction syndrome [Tietze] (principal); R07.89 Other chest pain; E11.65 Type 2 diabetes mellitus with hyperglycemia; G89.29 Other chronic pain; M25.569 Pain in unspecified knee; M16.11 Unilateral primary osteoarthritis, right hip; I10 Essential (primary) hypertension; K21.9 Gastro-esophageal reflux disease without esophagitis; E55.9 Vitamin D deficiency, unspecified; I45.10 Unspecified right bundle-branch block; E66.01 Morbid (severe) obesity due to excess calories; Z88.8 Allergy status to other drugs, medicaments and biological substances; Z79.4 Long term (current) use of insulin; Z79.899 Other long term (current) drug therapy; Z79.82 Long term (current) use of aspirin; Z90.89 Acquired absence of other organs; Z87.01 Personal history of pneumonia (recurrent); Z82.49 Family history of ischemic heart disease and other diseases of the circulatory system; Z83.3 Family history of diabetes mellitus; Z68.31 Body mass index [BMI] 31.0-31.9, adult

== ENCOUNTER 2020-05-22 21:51 | Emergency (ER) | payer OTHER ==
[~2020-05-22] VITALS: Ht 190.5 cm; Wt 104.3 kg
[~2020-05-22 21:51] MED LIST changes: +ASPIRIN CHEWABL81 MG PO; +OZEMPIC0.25 MG/01 SQ; +VITAMIN D22000 UNIT PO
[2020-05-22 22:33] LABS: BASO # 0.1 10*3/uL (0.0-0.1); EOS # 0.4 10*3/uL (0.0-0.4); EOS % 4.7 % (1.0-4.0); HEMATOCRIT 45.4 % (42.0-52.0); LYMPH # 3.1 10*3/uL (1.3-4.4); LYMPH % 38.4 % (27.0-41.0); MEAN CELL VOLUME 90.3 fl (80.0-94.0); MEAN CORPUSCULAR HGB 30.2 pg (27.0-31.0); MEAN CORPUSCULAR HGB CONC 33.5 g/dl (33.0-37.0); MEAN PLATELET VOLUME 9.2 fl (9.6-12.3); MONO # 0.8 10*3/uL (0.1-1.0); MONO % 10.4 % (3.0-9.0); NEUT # 3.7 10*3/uL (2.3-7.9); NEUT % 45.4 % (47.0-73.0); PLATELET COUNT AUTOMATED 269 10*3/uL (130-400); RED BLOOD COUNT 5.03 10*6/uL (4.50-5.90); RED CELL DISTRI WIDTH 12.7 % (0-14.5); WHITE BLOOD COUNT 8.1 10*3/uL (4.8-10.8)
[2020-05-22 22:48] LABS: ALBUMIN 3.9 gm/dl (3.1-4.5); ALKALINE PHOSPHATASE 104 U/L (45-117); BUN 15 mg/dl (7-24); CHLORIDE 106 mmol/L (98-107); CREATININE 0.92 mg/dL (0.70-1.30); POTASSIUM 3.7 mmol/L (3.5-5.1); SGOT/AST 16 IU/L (3-35); SGPT/ALT 28 U/L (12-78); SODIUM 140 mmol/L (136-145); TOTAL PROTEIN 7.5 gm/dL (6.4-8.2)
[2020-05-22] MEDS ORDERED: PREDNISONE20 M1 PO (23:06)
[2020-05-22] MEDS ORDERED: ZITHROMAX250 MG PO (23:48)
== END 2020-05-23 00:25 | disposition home or self-care (01) ==
LOC: ED 21:51
PROVIDERS: Nurse Practitioner
DX: J40 Bronchitis, not specified as acute or chronic (principal); J32.9 Chronic sinusitis, unspecified; Z88.8 Allergy status to other drugs, medicaments and biological substances; Z79.899 Other long term (current) drug therapy; Z79.82 Long term (current) use of aspirin

== ENCOUNTER → 2020-08-21 | Outpatient (CLI) | payer OTHER | END | disposition home or self-care (01) | LOC: RAD 10:43 | PROVIDERS: ATTEND Nurse Practitioner Family | DX: S99.921A Unspecified injury of right foot, initial encounter (principal); X58.XXXA Exposure to other specified factors, initial encounter; Y93.89 Activity, other specified; Y92.89 Other specified places as the place of occurrence of the external cause; Y99.8 Other external cause status ==

== ENCOUNTER 2021-01-18 10:30 | Emergency (ER) | payer OTHER ==
[~2021-01-18] VITALS: Ht 190.5 cm; Wt 102.1 kg
[2021-01-18 11:43] LABS: BASO # 0.1 10*3/uL (0.0-0.1); EOS # 0.1 10*3/uL (0.0-0.4); EOS % 2.3 % (1.0-4.0); HEMATOCRIT 43.8 % (42.0-52.0); LYMPH # 2.3 10*3/uL (1.3-4.4); LYMPH % 36.8 % (27.0-41.0); MEAN CELL VOLUME 89.2 fl (80.0-94.0); MEAN CORPUSCULAR HGB 30.3 pg (27.0-31.0); MEAN PLATELET VOLUME 9.3 fl (9.6-12.3); MONO # 0.5 10*3/uL (0.1-1.0); MONO % 7.3 % (3.0-9.0); NEUT # 3.2 10*3/uL (2.3-7.9); NEUT % 52.3 % (47.0-73.0); PLATELET COUNT AUTOMATED 253 10*3/uL (130-400); RED BLOOD COUNT 4.91 10*6/uL (4.50-5.90); RED CELL DISTRI WIDTH 12.5 % (0-14.5); WHITE BLOOD COUNT 6.2 10*3/uL (4.8-10.8)
[2021-01-18 11:58] LABS: ALBUMIN 3.5 gm/dl (3.1-4.5); ALKALINE PHOSPHATASE 116 U/L (45-117); BUN 13 mg/dl (7-24); CHLORIDE 105 mmol/L (98-107); CREATININE 0.76 mg/dL (0.70-1.30); LIPASE 181 U/L (73-393); POTASSIUM 4.2 mmol/L (3.5-5.1); SGOT/AST 15 IU/L (3-35); SGPT/ALT 26 U/L (12-78); SODIUM 134 mmol/L (136-145); TOTAL PROTEIN 6.7 gm/dL (6.4-8.2)
[2021-01-18 12:06] LABS: TROPONIN I < 0.015 ng/ml (<0.045)
== END 2021-01-18 13:00 | disposition home or self-care (01) ==
LOC: ED 10:30
PROVIDERS: Internal Medicine
DX: R07.89 Other chest pain (principal); Z90.89 Acquired absence of other organs; Z79.82 Long term (current) use of aspirin; Z79.899 Other long term (current) drug therapy; Z79.2 Long term (current) use of antibiotics; Z88.8 Allergy status to other drugs, medicaments and biological substances; Z88.6 Allergy status to analgesic agent

== ENCOUNTER 2021-05-12 19:42 | Emergency (ER) | payer OTHER ==
[~2021-05-12] VITALS: Ht 190.5 cm; Wt 102.1 kg
[2021-05-12] MEDS ORDERED: DOXYCYCLINE HY100 M3 PO (22:35)
[2021-05-12] MEDS ORDERED: TRAMADOL HCL50 MG PO (22:35)
== END 2021-05-12 23:54 | disposition home or self-care (01) ==
LOC: ED 19:42
DX: L02.213 Cutaneous abscess of chest wall (principal); Z88.8 Allergy status to other drugs, medicaments and biological substances; Z79.899 Other long term (current) drug therapy; Z79.82 Long term (current) use of aspirin

== ENCOUNTER → 2021-05-14 | Outpatient (CLI) | payer OTHER ==
[~2021-05-14] MED LIST changes: +DOXYCYCLINE HY100 M3 PO
== END ==
LOC: WOUNDCARE 08:32
PROVIDERS: ATTEND Nurse Practitioner Family
DX: T81.89XA Other complications of procedures, not elsewhere classified, initial encounter (principal); E11.9 Type 2 diabetes mellitus without complications; K21.9 Gastro-esophageal reflux disease without esophagitis; Z98.890 Other specified postprocedural states; Y92.238 Other place in hospital as the place of occurrence of the external cause

== ENCOUNTER → 2021-05-21 | Outpatient (CLI) | payer OTHER | LOC: WOUNDCARE 01:12 | PROVIDERS: ATTEND Nurse Practitioner Family | DX: L02.213 Cutaneous abscess of chest wall (principal); E11.9 Type 2 diabetes mellitus without complications; K21.9 Gastro-esophageal reflux disease without esophagitis; Z98.890 Other specified postprocedural states ==

== ENCOUNTER → 2021-05-28 | Outpatient (CLI) | payer OTHER | LOC: WOUNDCARE 05:00 | PROVIDERS: ATTEND Nurse Practitioner Family | DX: L02.213 Cutaneous abscess of chest wall (principal); E11.9 Type 2 diabetes mellitus without complications; K21.9 Gastro-esophageal reflux disease without esophagitis; Z98.890 Other specified postprocedural states ==

== ENCOUNTER 2021-08-31 22:06 | Emergency (ER) | payer OTHER ==
[~2021-08-31] VITALS: Ht 190.5 cm; Wt 104.3 kg
[2021-08-31] MEDS ORDERED: JARDIANCE25 MG PO (22:18)
[2021-08-31] MEDS ORDERED: TRESIBA FL100 UNIT/1 SQ (22:19)
== END 2021-09-01 01:29 | disposition home or self-care (01) ==
LOC: ED 22:06
DX: M79.604 Pain in right leg (principal); E11.9 Type 2 diabetes mellitus without complications; I10 Essential (primary) hypertension; Z88.8 Allergy status to other drugs, medicaments and biological substances; Z79.899 Other long term (current) drug therapy; Z79.82 Long term (current) use of aspirin; Z90.89 Acquired absence of other organs; Z98.890 Other specified postprocedural states

== ENCOUNTER 2021-12-08 20:05 | Emergency (ER) | payer OTHER ==
[~2021-12-08 20:05] MED LIST changes: +JARDIANCE25 MG PO; +TRESIBA FL100 UNIT/1 SQ
[2021-12-08] MEDS ORDERED: NAPROXEN250 MG PO (22:09)
== END 2021-12-08 22:21 | disposition home or self-care (01) ==
LOC: ED 20:05
DX: M79.642 Pain in left hand (principal); Z88.8 Allergy status to other drugs, medicaments and biological substances; Z79.899 Other long term (current) drug therapy; Z79.82 Long term (current) use of aspirin; Z90.89 Acquired absence of other organs; Z98.890 Other specified postprocedural states

== ENCOUNTER → 2021-12-31 | Outpatient (CLI) | payer OTHER ==
[~2021-12-31] MED LIST changes: +NAPROXEN250 MG PO
[2021-12-31 13:24] LABS: BASO # 0.1 10*3/uL (0.0-0.1); BASO % 1.4 % (0.0-1.0); EOS # 0.2 10*3/uL (0.0-0.4); EOS % 2.5 % (1.0-4.0); HEMATOCRIT 46.2 % (42.0-52.0); LYMPH # 2.9 10*3/uL (1.3-4.4); LYMPH % 39.5 % (27.0-41.0); MEAN CELL VOLUME 87.5 fl (80.0-94.0); MEAN CORPUSCULAR HGB 30.5 pg (27.0-31.0); MEAN CORPUSCULAR HGB CONC 34.8 g/dl (33.0-37.0); MEAN PLATELET VOLUME 9.7 fl (9.6-12.3); MONO # 0.6 10*3/uL (0.1-1.0); MONO % 8.2 % (3.0-9.0); NEUT # 3.4 10*3/uL (2.3-7.9); NEUT % 47.6 % (47.0-73.0); PLATELET COUNT AUTOMATED 260 10*3/uL (130-400); RED BLOOD COUNT 5.28 10*6/uL (4.50-5.90); RED CELL DISTRI WIDTH 12.6 % (0-14.5); WHITE BLOOD COUNT 7.2 10*3/uL (4.8-10.8)
[2021-12-31 13:43] LABS: CHLORIDE 107 mmol/L (98-107); SODIUM 138 mmol/L (136-145)
[2021-12-31 14:03] LABS: ALKALINE PHOSPHATASE 115 U/L (45-117); BUN 12 mg/dl (7-24); CHOLESTEROL 183 mg/dL (<200); CREATININE 0.83 mg/dL (0.70-1.30); LDL CHOLESTEROL 107 mg/dL (9-159); SGOT/AST 17 IU/L (3-35); SGPT/ALT 28 U/L (12-78); T3 UPTAKE 34 % (31-39); THYROXINE (T4) TOTAL 7.8 ug/dl (4.5-12.1); TOTAL PROTEIN 7.3 gm/dL (6.4-8.2); TRIGLYCERIDES 215 mg/dl (<150)
== END | disposition home or self-care (01) ==
LOC: LAB 12:34
PROVIDERS: ATTEND Family Medicine
DX: Z13.89 Encounter for screening for other disorder (principal); Z00.00 Encounter for general adult medical examination without abnormal findings; Z12.5 Encounter for screening for malignant neoplasm of prostate; Z13.6 Encounter for screening for cardiovascular disorders; E04.9 Nontoxic goiter, unspecified; E55.9 Vitamin D deficiency, unspecified; M19.042 Primary osteoarthritis, left hand

== ENCOUNTER 2022-08-21 11:42 | Emergency (ER) | payer OTHER ==
[~2022-08-21] VITALS: Ht 190.5 cm; Wt 104.3 kg
[2022-08-21 12:34] LABS: BILIRUBIN Negative (Negative); BLOOD Negative (Negative); CLARITY Clear (Clear); COLOR Yellow (Yellow); GLUCOSE 3+ (Negative); KETONE Trace (Negative); LEUKO ESTERASE Negative (Negative); NITRITE Negative (Negative); SPECIFIC GRAVITY >= 1.030 (1.001-1.030); UROBILINOGEN 0.2 E.U./dl (0.0-1.0)
[2022-08-21 12:38] LABS: BASO # 0.1 10*3/uL (0.0-0.1); BASO % 1.1 % (0.0-1.0); EOS # 0.2 10*3/uL (0.0-0.4); EOS % 2.8 % (1.0-4.0); HEMATOCRIT 46.5 % (42.0-52.0); LYMPH # 2.7 10*3/uL (1.3-4.4); LYMPH % 37.9 % (27.0-41.0); MEAN CELL VOLUME 88.7 fl (80.0-94.0); MEAN CORPUSCULAR HGB 30.5 pg (27.0-31.0); MEAN CORPUSCULAR HGB CONC 34.4 g/dl (33.0-37.0); MEAN PLATELET VOLUME 9.5 fl (9.6-12.3); MONO # 0.6 10*3/uL (0.1-1.0); MONO % 7.6 % (3.0-9.0); NEUT # 3.6 10*3/uL (2.3-7.9); NEUT % 50.3 % (47.0-73.0); PLATELET COUNT AUTOMATED 256 10*3/uL (130-400); RED BLOOD COUNT 5.24 10*6/uL (4.50-5.90); RED CELL DISTRI WIDTH 12.4 % (0-14.5); WHITE BLOOD COUNT 7.2 10*3/uL (4.8-10.8)
[2022-08-21 12:50] LABS: EPITHELIAL CELLS 0-2; MUCOUS TRACE
[2022-08-21 12:56] LABS: ALKALINE PHOSPHATASE 106 U/L (46-116); BUN 10 mg/dl (9-23); CHLORIDE 104 mmol/L (98-107); LIPASE 38 U/L (12-53); POTASSIUM 4.1 mmol/L (3.4-5.1); SGPT/ALT 26 U/L (10-49); TOTAL PROTEIN 7.1 gm/dL (6.0-8.0)
[2022-08-21] MEDS ORDERED: PEPCID20 MG PO (15:20)
[2022-08-21] MEDS ORDERED: OMEPRAZOLE10 MG PO (15:20)
== END 2022-08-21 15:22 | disposition home or self-care (01) ==
LOC: ED 11:42
PROVIDERS: Physician Assistant
DX: R10.13 Epigastric pain (principal); E11.9 Type 2 diabetes mellitus without complications; Z88.8 Allergy status to other drugs, medicaments and biological substances; Z90.89 Acquired absence of other organs; Z98.890 Other specified postprocedural states

== ENCOUNTER 2022-09-11 20:07 | Emergency (ER) | payer OTHER ==
[~2022-09-11] VITALS: Ht 190.5 cm; Wt 104.3 kg
[~2022-09-11 20:07] MED LIST changes: +OMEPRAZOLE10 MG PO
[2022-09-11] MEDS ORDERED: PREDNISONE20 M1 PO (23:33)
== END 2022-09-11 23:48 | disposition home or self-care (01) ==
LOC: ED 20:07
DX: J40 Bronchitis, not specified as acute or chronic (principal); E11.9 Type 2 diabetes mellitus without complications; Z88.8 Allergy status to other drugs, medicaments and biological substances; Z90.89 Acquired absence of other organs; Z98.890 Other specified postprocedural states; Z20.822 Contact with and (suspected) exposure to COVID-19

== ENCOUNTER 2022-10-05 21:29 | Emergency (ER) | payer OTHER ==
[~2022-10-05] VITALS: Ht 190.5 cm; Wt 104.3 kg
[2022-10-05] MEDS ORDERED: NOVOLOG10 ML SC (21:36)
[2022-10-05] MEDS ORDERED: TRESIBA100 UNIT/1 SQ (21:36)
[2022-10-05] MEDS ORDERED: PRILOSEC20 M1 PO (21:37)
== END 2022-10-05 22:42 | disposition home or self-care (01) ==
LOC: ED 21:29
DX: J40 Bronchitis, not specified as acute or chronic (principal); J32.9 Chronic sinusitis, unspecified; E11.9 Type 2 diabetes mellitus without complications; Z88.8 Allergy status to other drugs, medicaments and biological substances; Z90.89 Acquired absence of other organs; Z98.890 Other specified postprocedural states

== ENCOUNTER 2023-04-12 21:50 | Emergency (ER) | payer OTHER ==
[~2023-04-12] VITALS: Ht 190.5 cm; Wt 106.6 kg
[~2023-04-12 21:50] MED LIST changes: +NOVOLOG10 ML SC; +TRESIBA100 UNIT/1 SQ
[2023-04-12 22:53] LABS: BASO # 0.1 10*3/uL (0.0-0.1); BASO % 1.1 % (0.0-1.0); EOS # 0.3 10*3/uL (0.0-0.4); EOS % 3.5 % (1.0-4.0); HEMATOCRIT 41.6 % (42.0-52.0); LYMPH # 3.3 10*3/uL (1.3-4.4); LYMPH % 44.3 % (27.0-41.0); MEAN CELL VOLUME 88.1 fl (80.0-94.0); MEAN CORPUSCULAR HGB 30.7 pg (27.0-31.0); MEAN CORPUSCULAR HGB CONC 34.9 g/dl (33.0-37.0); MEAN PLATELET VOLUME 8.9 fl (9.6-12.3); MONO # 0.7 10*3/uL (0.1-1.0); MONO % 9.3 % (3.0-9.0); NEUT # 3.1 10*3/uL (2.3-7.9); NEUT % 41.7 % (47.0-73.0); PLATELET COUNT AUTOMATED 245 10*3/uL (130-400); RED BLOOD COUNT 4.72 10*6/uL (4.50-5.90); RED CELL DISTRI WIDTH 12.8 % (0-14.5); WHITE BLOOD COUNT 7.3 10*3/uL (4.8-10.8)
[2023-04-12 23:18] LABS: ALKALINE PHOSPHATASE 108 U/L (46-116); BUN 13 mg/dl (9-23); CHLORIDE 105 mmol/L (98-107); POTASSIUM 3.8 mmol/L (3.4-5.1); SGPT/ALT 24 U/L (5-49); TOTAL PROTEIN 6.7 gm/dL (6.0-8.0)
[2023-04-13 00:10] LABS: BILIRUBIN Negative (Negative); BLOOD Negative (Negative); CLARITY Clear (Clear); COLOR Yellow (Yellow); GLUCOSE 3+ (Negative); KETONE Trace (Negative); LEUKO ESTERASE Negative (Negative); NITRITE Negative (Negative); PH 5.5 (4.5-8.0); SPECIFIC GRAVITY 1.025 (1.001-1.030); UROBILINOGEN 0.2 E.U./dl (0.0-1.0)
[2023-04-13] MEDS ORDERED: TIZANIDINE HCL4 MG PO (00:38)
== END 2023-04-13 01:09 | disposition home or self-care (01) ==
LOC: ED 21:50
PROVIDERS: Family Medicine
DX: M54.50 Low back pain, unspecified (principal); R60.0 Localized edema; E11.9 Type 2 diabetes mellitus without complications; Z88.8 Allergy status to other drugs, medicaments and biological substances; Z90.89 Acquired absence of other organs; Z98.890 Other specified postprocedural states; Z90.49 Acquired absence of other specified parts of digestive tract

== ENCOUNTER 2023-09-26 15:26 | Emergency (ER) | payer OTHER ==
[~2023-09-26] VITALS: Ht 187.9 cm; Wt 111.1 kg
[~2023-09-26 15:26] MED LIST changes: +TIZANIDINE HCL4 MG PO
[2023-09-26 16:19] LABS: BASO # 0.1 10*3/uL (0.0-0.1); BASO % 0.7 % (0.0-1.0); EOS # 0.1 10*3/uL (0.0-0.4); EOS % 1.6 % (1.0-4.0); HEMATOCRIT 43.8 % (42.0-52.0); LYMPH # 2.1 10*3/uL (1.3-4.4); LYMPH % 23.5 % (27.0-41.0); MEAN CELL VOLUME 89.9 fl (80.0-94.0); MEAN CORPUSCULAR HGB 29.6 pg (27.0-31.0); MEAN CORPUSCULAR HGB CONC 32.9 g/dl (33.0-37.0); MONO # 0.6 10*3/uL (0.1-1.0); MONO % 6.4 % (3.0-9.0); NEUT # 5.9 10*3/uL (2.3-7.9); NEUT % 67.6 % (47.0-73.0); PLATELET COUNT AUTOMATED 283 10*3/uL (130-400); RED BLOOD COUNT 4.87 10*6/uL (4.50-5.90); RED CELL DISTRI WIDTH 12.9 % (0-14.5); WHITE BLOOD COUNT 8.7 10*3/uL (4.8-10.8)
[2023-09-26 16:37] LABS: ALKALINE PHOSPHATASE 107 U/L (46-116); BUN 13 mg/dl (9-23); CHLORIDE 104 mmol/L (98-107); POTASSIUM 3.8 mmol/L (3.4-5.1); SGPT/ALT 26 U/L (5-49); TOTAL PROTEIN 6.9 gm/dL (6.0-8.0)
[2023-09-26 16:42] LABS: ACT PARTIAL THROMBO TIME 28.8 SECONDS (20.0-32.1)
== END 2023-09-26 17:46 | disposition home or self-care (01) ==
LOC: ED 15:26
PROVIDERS: Nurse Practitioner Family
DX: R07.89 Other chest pain (principal); E11.65 Type 2 diabetes mellitus with hyperglycemia; R20.2 Paresthesia of skin; R20.0 Anesthesia of skin; I10 Essential (primary) hypertension; K21.9 Gastro-esophageal reflux disease without esophagitis; Z88.8 Allergy status to other drugs, medicaments and biological substances; Z79.899 Other long term (current) drug therapy; Z79.82 Long term (current) use of aspirin; Z79.4 Long term (current) use of insulin; Z90.89 Acquired absence of other organs

== ENCOUNTER 2023-11-23 20:26 | Emergency (ER) | payer OTHER ==
[~2023-11-23] VITALS: Ht 187.9 cm; Wt 108.9 kg
[2023-11-23] MEDS ORDERED: Acetaminophen/Hydrocodone 5 MG/325 MG TABLET PO ONE (20:45)
[2023-11-23] MEDS ORDERED: NAPROSYN500 MG PO (22:27)
== END 2023-11-23 23:20 | disposition home or self-care (01) ==
LOC: ED 20:26
DX: S46.811A Strain of other muscles, fascia and tendons at shoulder and upper arm level, right arm, initial encounter (principal); E11.65 Type 2 diabetes mellitus with hyperglycemia; I10 Essential (primary) hypertension; K21.9 Gastro-esophageal reflux disease without esophagitis; Z88.8 Allergy status to other drugs, medicaments and biological substances; Z90.89 Acquired absence of other organs; Z98.890 Other specified postprocedural states; W22.8XXA Striking against or struck by other objects, initial encounter; Y93.89 Activity, other specified; Y92.89 Other specified places as the place of occurrence of the external cause; Y99.8 Other external cause status

== ENCOUNTER → 2024-02-21 | Outpatient (CLI) | payer OTHER ==
[~2024-02-21] MED LIST changes: +IOHEXOL 300 MG/ML 100 ML VIAL IV ONE
== END | disposition home or self-care (01) ==
LOC: CT 10:38
PROVIDERS: ATTEND Physician Assistant
DX: R59.1 Generalized enlarged lymph nodes (principal); M47.812 Spondylosis without myelopathy or radiculopathy, cervical region

== ENCOUNTER 2024-05-13 16:37 | Emergency (ER) | payer OTHER ==
[~2024-05-13] VITALS: Wt 113.4 kg
[~2024-05-13 16:37] MED LIST changes: -IOHEXOL 300 MG/ML 100 ML VIAL IV ONE
[2024-05-13] MEDS ORDERED: MORPHINE Sulfate 2 MG/ML SYR IM ONE (16:55)
[2024-05-13] MEDS ORDERED: TRAMADOL HCL50 MG PO ×2 (19:12→19:32)
== END 2024-05-13 19:35 | disposition home or self-care (01) ==
LOC: ED 16:37
DX: M25.511 Pain in right shoulder (principal); M25.561 Pain in right knee; M54.2 Cervicalgia; M25.521 Pain in right elbow; M25.531 Pain in right wrist; M25.551 Pain in right hip; E11.9 Type 2 diabetes mellitus without complications; Z88.8 Allergy status to other drugs, medicaments and biological substances; Z90.89 Acquired absence of other organs; Z98.890 Other specified postprocedural states; V43.52XA Car driver injured in collision with other type car in traffic accident, initial encounter; Y93.89 Activity, other specified; Y92.410 Unspecified street and highway as the place of occurrence of the external cause; Y99.8 Other external cause status

== ENCOUNTER 2024-07-09 05:22 | Emergency (ER) | payer OTHER ==
[~2024-07-09] VITALS: Ht 190.5 cm; Wt 113.4 kg
[2024-07-09] MEDS ORDERED: BENZONATATE200 MG PO (05:36)
[2024-07-09] MEDS ORDERED: OMEGA-3-ACID ETH1 GM PO (05:37)
[2024-07-09] MEDS ORDERED: INSULIN LI100 UNIT/1 SQ (05:37)
[2024-07-09] MEDS ORDERED: PREGABALIN50 MG PO (05:38)
[2024-07-09] MEDS ORDERED: VITAMIN D350 MCG PO (05:38)
[2024-07-09] MEDS ORDERED: ZETIA10 MG PO (05:38)
[2024-07-09] MEDS ORDERED: ALBUTEROL SULFATE HF INH (05:40)
[2024-07-09] MEDS ORDERED: methylPREDNISolone sod succ 125 MG VIAL IM ONE (07:15)
[2024-07-09] MEDS ORDERED: PREDNISONE20 M1 PO (07:16)
[2024-07-09] MEDS ORDERED: ZITHROMAX250 MG PO (07:16)
== END 2024-07-09 07:33 | disposition home or self-care (01) ==
LOC: ED 05:22
DX: B34.9 Viral infection, unspecified (principal); Z20.822 Contact with and (suspected) exposure to COVID-19; E11.9 Type 2 diabetes mellitus without complications; Z88.8 Allergy status to other drugs, medicaments and biological substances; Z90.89 Acquired absence of other organs; Z98.890 Other specified postprocedural states

== ENCOUNTER 2024-07-21 12:32 | Emergency (ER) | payer OTHER ==
[~2024-07-21] VITALS: Wt 113.4 kg
[~2024-07-21 12:32] MED LIST changes: +ALBUTEROL SULFATE HF INH; +BENZONATATE200 MG PO; +INSULIN LI100 UNIT/1 SQ; +OMEGA-3-ACID ETH1 GM PO; +PREGABALIN50 MG PO; +VITAMIN D350 MCG PO; +ZETIA10 MG PO
[2024-07-21 14:21] LABS: BASO # 0.1 10*3/uL (0.0-0.1); BASO % 0.5 % (0.0-1.0); EOS # 0.1 10*3/uL (0.0-0.4); EOS % 1.5 % (1.0-4.0); HEMATOCRIT 39.8 % (42.0-52.0); MEAN CELL VOLUME 87.9 fl (80.0-94.0); MEAN CORPUSCULAR HGB 29.6 pg (27.0-31.0); MEAN CORPUSCULAR HGB CONC 33.7 g/dl (33.0-37.0); MEAN PLATELET VOLUME 8.7 fl (9.6-12.3); MONO # 0.7 10*3/uL (0.1-1.0); MONO % 7.9 % (3.0-9.0); NEUT # 5.1 10*3/uL (2.3-7.9); NEUT % 56.5 % (47.0-73.0); PLATELET COUNT AUTOMATED 284 10*3/uL (130-400); RED BLOOD COUNT 4.53 10*6/uL (4.50-5.90); RED CELL DISTRI WIDTH 12.7 % (0-14.5); WHITE BLOOD COUNT 9.1 10*3/uL (4.8-10.8)
[2024-07-21] MEDS ORDERED: methylPREDNISolone sod succ 125 MG VIAL IV ONE (14:40)
[2024-07-21] MEDS ORDERED: Albuterol Sulf/Ipratropium 3 ML VIAL NEB ONE (14:40)
[2024-07-21 14:44] LABS: BUN 13 mg/dl (9-23); CHLORIDE 100 mmol/L (98-107); POTASSIUM 4.3 mmol/L (3.4-5.1)
[2024-07-21] MEDS ORDERED: AVPAK AZITHROM250 MG PO (17:03)
[2024-07-21] MEDS ORDERED: BENZONATATE100 M1 PO (17:03)
[2024-07-21] MEDS ORDERED: GUAIFENESIN200 MG PO (17:03)
== END 2024-07-21 17:12 | disposition home or self-care (01) ==
LOC: ED 12:32
PROVIDERS: Internal Medicine
DX: J40 Bronchitis, not specified as acute or chronic (principal); Z20.822 Contact with and (suspected) exposure to COVID-19; E11.9 Type 2 diabetes mellitus without complications; Z88.8 Allergy status to other drugs, medicaments and biological substances; Z90.89 Acquired absence of other organs; Z98.890 Other specified postprocedural states

== ENCOUNTER → 2024-08-16 | Outpatient (CLI) | payer OTHER ==
[~2024-08-16] MED LIST changes: +AVPAK AZITHROM250 MG PO; +BENZONATATE100 M1 PO; +GUAIFENESIN200 MG PO
== END | disposition home or self-care (01) ==
LOC: RAD 13:43
PROVIDERS: ATTEND Physician Assistant
DX: M25.561 Pain in right knee (principal)

== ENCOUNTER 2024-11-17 14:44 | Emergency (ER) | payer OTHER ==
[~2024-11-17] VITALS: Ht 190.5 cm; Wt 113.4 kg
[2024-11-17] MEDS ORDERED: Albuterol Sulf/Ipratropium 3 ML VIAL NEB ONE (15:05)
== END 2024-11-17 16:51 | disposition home or self-care (01) ==
LOC: ED 14:44
DX: J40 Bronchitis, not specified as acute or chronic (principal); E11.9 Type 2 diabetes mellitus without complications; Z20.822 Contact with and (suspected) exposure to COVID-19; Z79.4 Long term (current) use of insulin; Z79.899 Other long term (current) drug therapy; Z88.1 Allergy status to other antibiotic agents; Z88.8 Allergy status to other drugs, medicaments and biological substances; Z90.89 Acquired absence of other organs; Z98.890 Other specified postprocedural states